=== PATIENT | male | born 1955 | race African-American/Black ===

== ENCOUNTER 2018-11-01 10:40 | Day surgery (SDC) | payer OTHER ==
[2018-10-31 17:09] VITALS: BMI 26.6
--- NOTE | 2018-11-01 12:04 | HP ---
Admitting History and Physical - Admission Chief Complaint: Left great toe gangrene. pt here for angiogram today . Limitations to Obtaining History: No Limitations - Past Medical History Cardiovascular: Yes: HTN Endocrine: Yes: Diabetes Mellitus - Past Surgical History Past Surgical History: Yes: Kidney Transplant - Smoking History Smoking history: Never smoked Have you smoked in the past 12 months: No - Alcohol/Substance Use Hx Alcohol Use: Yes (rarely) Home Medications - Allergies Allergies/Adverse Reactions: Allergies Allergy/AdvReac Type Severity Reaction Status Date / Time shellfish derived Allergy Verified 11/01/18 11:07 - Home Medications Home Medications: Ambulatory Orders Aspirin [ASA -] 81 mg PO DAILY 11/03/16 Hydralazine HCl 100 mg PO TID 11/03/16 Insulin (Levemir) [Levemir Flexpen -] 30 units SQ BID 11/03/16 Labetalol HCl 300 mg PO BID 11/03/16 Nifedipine [Nifedipine ER] 60 mg PO BID 11/03/16 Tacrolimus [Prograf] 10 mg PO BID 11/03/16 Sodium Bicarbonate 975 mg PO BID 10/08/18 Cefuroxime Axetil [Ceftin -] 250 mg PO BID 10/31/18 Ezetimibe [Zetia -] 10 mg PO DAILY 10/31/18 Furosemide [Lasix -] 40 mg PO DAILY PRN 10/31/18 Mycophenolate Sodium [Mycophenolic Acid] 360 mg PO BID 10/31/18 Prednisone 5 mg PO DAILY 10/31/18 Tamsulosin HCl 0.4 mg PO DAILY 10/31/18 Review of Systems - Review of Systems Constitutional: reports: No Symptoms Eyes: reports: No Symptoms HENT: reports: No Symptoms Neck: reports: No Symptoms Cardiovascular: reports: No Symptoms Respiratory: reports: No Symptoms Gastrointestinal: reports: No Symptoms Genitourinary: reports: No Symptoms Musculoskeletal: reports: No Symptoms Integumentary: reports: Other (left great toe gangrene) Neurological: reports: No Symptoms Endocrine: reports: No Symptoms Hematology/Lymphatic: reports: No Symptoms Psychiatric: reports: No Symptoms Physical Examination Vital Signs: Vital Signs Temperature 97.6 F 11/01/18 11:03 Pulse Rate 69 11/01/18 11:03 Respiratory Rate 16 11/01/18 11:03 Blood Pressure 133/71 11/01/18 11:03 O2 Sat by Pulse Oximetry (%) 100 07/11/19 11:03 Constitutional: Yes: Well Nourished, No Distress, Calm Eyes: Yes: WNL, Conjunctiva Clear, EOM Intact HENT: Yes: WNL, Atraumatic, Normocephalic Neck: Yes: WNL, Supple, Trachea Midline Cardiovascular: Yes: WNL, Regular Rate and Rhythm Respiratory: Yes: WNL, Regular, CTA Bilaterally Gastrointestinal: Yes: WNL, Normal Bowel Sounds Musculoskeletal: Yes: WNL Extremities: Yes: WNL, Other (left great toe gangrene) Edema: No Peripheral Pulses WNL: No Integumentary: Yes: WNL Neurological: Yes: WNL, Alert, Oriented ...Motor Strength: WNL Psychiatric: Yes: WNL Problem List - Problems (1) Gangrene of left foot Assessment/Plan: for angiogram today Code(s): I96 - GANGRENE, NOT ELSEWHERE CLASSIFIED
[2018-11-01] MEDS ORDERED: ceFAZolin SODIUM 1 GM VIAL IVPB ONE (12:11)
[2018-11-01] MEDS ORDERED: MIDAZOLAM HCL 2 MG/2 ML SINGLE DOSE VIAL ONE (12:14)
[2018-11-01] MEDS ORDERED: oxyCODONE HCL 5 MG TABLET PO PRN (12:18)
[2018-11-01] MEDS ORDERED: ONDANSETRON 4 MG/2 ML VIAL IVPUSH PRN (12:18)
--- NOTE | 2018-11-01 14:05 | OP ---
Operative Note - Note: Operative Date: 11/01/18 Pre-Operative Diagnosis: left foot gangrene Operation: CO2 Aortogram, LLE CO2 angiogram, posterior tibial artery atherectomy with angioplasty, peroneal artery angioplasty Findings: Post tibial artery occlusion Peroneal artery stenosis Post-Operative Diagnosis: Same as Pre-op Surgeon: Cy Pulido Anesthesia: Fractional Estimated Blood Loss (mls): 50 Operative Report Dictated: Yes
[2018-11-01] MEDS ORDERED: CLOPIDOGREL BISULFATE 75 MG TABLET (FP) PO ONE (14:08)
[2018-11-01] MEDS ORDERED: CLOPIDOGREL BISULFATE 75 MG TABLET (FP) ONE (15:14)
[2018-11-01 17:22] VITALS: BP 153/71; PULSE 74; TEMP 98.3
--- NOTE | 2018-11-10 16:38 | OP ---
DATE OF OPERATION: 11/01/2018 PREOPERATIVE DIAGNOSIS: Left foot gangrene. POSTOPERATIVE DIAGNOSIS: Left foot gangrene. PROCEDURE PERFORMED: Carbon dioxide aortogram, the left lower extremity carbon dioxide angiogram, posterior tibial artery atherectomy with angioplasty, peroneal artery angioplasty. FINDINGS: Posterior tibial artery occlusion, peroneal artery stenosis. SURGEON: Cy Frye DO ANESTHESIA: Fractional. BLOOD LOSS: 50 mL. INDICATIONS: The patient is a 63-year-old male who has left great toe gangrene. It was decided that he would need an angiogram. Preoperative ultrasound showed tibial disease. DESCRIPTION OF PROCEDURE: The patient came in to Ambulatory Surgery. The patient was consented for the procedure, understanding all risks, benefits and alternatives, and was then taken to the operating room. Once in the operating room, the patient was laid on the operating table in the supine manner. The areas of the right and left groins were prepped and draped in a sterile surgical manner. We then injected 10 mL of lidocaine 1% over the left common femoral artery. We then used our Micropuncture needle and punctured the left common femoral artery. Micropuncture wire was inserted. Micropuncture sheath was inserted. A 0.035 floppy guidewire was inserted, and an additional 5-Micronesian sheath was inserted. We then placed the 0.035 floppy guidewire up into the aorta, followed by an Omni Flush catheter. We then shot a CO2 aortogram, showing that aorta and the iliac arteries were without any disease. We then went ahead and placed our 0.035 floppy guidewire up and over to the left common femoral artery. Omni Flush catheter followed. We then shot a left lower extremity CO2 angiogram, showing that the common femoral artery, the profunda and the SFA were patent. The popliteal artery was patent. The peroneal artery had a severe stenosis of about 90%. The posterior tibial artery was occluded at its origin and reconstituted in the mid to distal portion. At this point we placed a 0.035 stiff guidewire into the SFA and removed our Omni Flush catheter. We then placed a 6 x 45 crossover sheath. Then 5000 units of IV heparin was administered to the patient. We then placed a 0.035 floppy guidewire down into the popliteal artery and with a Quick-Cross catheter we were able to selectively cannulate the 0.035 stiff guidewire into the posterior tibial artery. We got it all the way down into the foot. We then placed our Quick-Cross catheter and exchanged it for a ViperWire. We then went ahead and performed orbital atherectomy of the posterior tibial artery using a CSI device on low and medium. We then went ahead and used a 2.5 x 200 balloon and performed angioplasty of the posterior tibial artery. We then went ahead and took our wire and placed it into the posterior tibial artery and crossed the severe stenosis. We then used a 2.5 x 10 balloon and performed angioplasty of the peroneal artery. Completion angiogram now showed that the posterior tibial artery and the peroneal artery were patent. There was good in-line runoff all the way into the foot, main runoff the posterior tibial artery feeding the entire foot. At this point we brought our sheath up and over, and a StarClose device was successfully deployed in the left common femoral artery. Pressure was held for 5 minutes. Afterwards there was no bleeding. The area was wet and dried, and Dermabond was placed. The patient tolerated the procedure with no complications. Total blood loss was 50 mL. CY FRYE DO [id number]
== END 2018-11-01 17:15 | disposition home or self-care (01) ==
LOC: JASU-SURG 10:40
PROVIDERS: ATTEND Surgery Vascular Surgery
PROC: 047U3ZZ Dilation of Left Peroneal Artery, Percutaneous Approach (ICD-10-PCS; 2018-11-01)
PROC: 047S3ZZ Dilation of Left Posterior Tibial Artery, Percutaneous Approach (ICD-10-PCS; principal; 2018-11-01 12:00)
DX: I70.262 Atherosclerosis of native arteries of extremities with gangrene, left leg (principal); I77.1 Stricture of artery; I12.0 Hypertensive chronic kidney disease with stage 5 chronic kidney disease or end stage renal disease; E11.22 Type 2 diabetes mellitus with diabetic chronic kidney disease; N18.6 End stage renal disease; Z99.2 Dependence on renal dialysis; Z94.0 Kidney transplant status
CPT/HCPCS: 37229; 37232; C1725; 76000-TC-FY; 82962; 94760

== ENCOUNTER 2018-11-12 11:43 | Inpatient (IN) | payer OTHER ==
--- NOTE | 2018-11-12 12:00 | PDOC ---
Rapid Medical Evaluation Time Seen by Provider: 11/12/18 11:58 Medical Evaluation: Allergies Allergy/AdvReac Type Severity Reaction Status Date / Time shellfish derived Allergy Verified 11/12/18 11:58 11/12/18 11:58 I have performed a brief in-person evaluation of this patient. The patient presents with a chief complaint of: sent from wound care with f/c Pertinent physical exam findings: VSS. T-100.4, Left great toe wound I have ordered the following: labs, urine The patient will proceed to the ED for further evaluation. Discharge Disposition - Diagnosis Gangrene of left foot - Referrals - Patient Instructions - Post Discharge Activity
[2018-11-12] MEDS ORDERED: SODIUM CHLORIDE 1,000 ML IV STA (12:03)
--- NOTE | 2018-11-12 12:27 | PDOC ---
*Physical Exam - Vital Signs Last Vital Signs Temp Pulse Resp BP Pulse Ox 100.4 F H 121 H 18 156/70 99 11/12/18 12:00 11/12/18 12:00 11/12/18 12:00 11/12/18 12:00 11/12/18 12:00 Heart Score/ECG Review - ECG Impressions Comment:: 11/12/18 12:52 Sinus Tach w/LAD, TWI in lateral leads, biphasic P waves indicating L atrial enlargement Medical Decision Making - Medical Decision Making 11/12/18 12:33 Patient seen and evaluated with Dr. Singh (PGY-1) The patient is a 63 year old male with a PMH of PVD, IDDM, Renal transplant presents with L 1st toe gangrene who presents from wound clinic with fever ( Temp 100.4). Patient states he noticed chills on Monday and has been feeling nauseous since that time. Reports 3 episodes of loose watery stool daily since Monday. Currently being evaluated for L great toe wound. Tachycardic (HR 121) Febrile (100.4) @ presentation w/frankly gangrenous 1st hallux ED Adult Sepsis initiated Will obtain Pre-Op labs and start on IV Abx 11/12/18 12:49 EKG with TWI in lateral leads aVL, V5,V6, no active complaints of CP 11/12/18 13:03 Case d/w Dr. Mei's COMPUTER TAPE LIBRARIAN, will accept for admission, requests Dr. Whitten for ID *DC/Admit/Observation/Transfer Diagnosis at time of Disposition: Gangrene of left foot, Systemic inflammatory response syndrome (SIRS), Fever, Tachycardia - Discharge Dispostion Condition at time of disposition: Fair Decision to Admit order: Yes - Referrals - Patient Instructions - Post Discharge Activity
--- NOTE | 2018-11-12 12:30 | PDOC ---
History of Present Illness - General Chief Complaint: SIRS, Suspected/Possible Stated Complaint: FEVER Time Seen by Provider: 11/12/18 11:58 History Source: Patient Exam Limitations: No Limitations - History of Present Illness Initial Comments: 11/12/18 13:12 63 yo M pmh HTN, DM, s/p renal transplant 2016 sent by wound care clinic for gangrenous left toe in the setting of fevers and chills for 3 days. Patient endorses 2-3 episodes of nbnb vomiting, 2-3 episodes of loose stool, and decreased PO intake of solid food. Pt has been followed by wound care for diabetic foot, states he noticed increased pain in the left great toe over the last 2 weeks. Endorses some weakness otherwise denies headache, lightheadedness , dizziness, cough, chest pain, SOB, abdominal pain, and dysuria. PMH: see chart, h/o UTI MED: see chart Shellfish allergy PCP: Hamida Note: patient sent to ED with physician note requesting initiation of antibiotics. Past History - Past Medical History Allergies/Adverse Reactions: Allergies Allergy/AdvReac Type Severity Reaction Status Date / Time shellfish derived Allergy Verified 11/12/18 11:58 Home Medications: Ambulatory Orders Aspirin [ASA -] 81 mg PO DAILY 11/03/16 Hydralazine HCl 100 mg PO TID 11/03/16 Insulin (Levemir) [Levemir Flexpen -] 30 units SQ BID 11/03/16 Labetalol HCl 300 mg PO BID 11/03/16 Nifedipine [Nifedipine ER] 60 mg PO BID 11/03/16 Tacrolimus [Prograf] 10 mg PO BID 11/03/16 Sodium Bicarbonate 975 mg PO BID 10/08/18 Ezetimibe [Zetia -] 10 mg PO DAILY 10/31/18 Furosemide [Lasix -] 40 mg PO DAILY PRN 10/31/18 Mycophenolate Sodium [Mycophenolic Acid] 360 mg PO BID 10/31/18 Prednisone 5 mg PO DAILY 10/31/18 Tamsulosin HCl 0.4 mg PO DAILY 10/31/18 Clopidogrel Bisulfate [Plavix] 75 mg PO DAILY #30 tablet 11/01/18 COPD: No Diabetes: Yes HTN: Yes Hypercholesterolemia: Yes Other medical history: KIDNEY TRANSPLANT 11/06 - Immunization History Immunization Up to Date: Yes - Suicide/Smoking/Psychosocial Hx Smoking History: Never smoked Have you smoked in the past 12 months: No Hx Alcohol Use: No Drug/Substance Use Hx: No Substance Use Type: None Review of Systems - Review of Systems Able to Perform ROS?: Yes Is the patient limited German proficient: No Constitutional: Yes: Chills, Fever, Loss of Appetite (decreased PO intake of solid food; can have soft foods), Weakness HEENTM: No: Symptoms Reported, Eye Pain, Blurred Vision, Tearing, Recent change in vision, Double Vision, Cataracts, Ear Pain, Ocular Prothesis, Ear Discharge, Nose Pain, Nose Congestion, Tinnitus, Nose Bleeding, Hearing Loss, Throat Pain, Throat Swelling, Mouth Pain, Dental Problems, Difficulty Swallowing, Mouth Swelling Respiratory: No: Symptoms reported, Cough, Orthopnea, Shortness of Breath, SOB with Exertion, SOB at Rest, Stridor, Wheezing, Productive cough, Hemoptysis Cardiac (ROS): No: Symptoms Reported, Chest Pain, Irregular Heart Rate, Lightheadedness, Palpitations, Syncope, Chest Tightness ABD/GI: Yes: See HPI : No: Symptoms Reported, Burning, Dysuria, Discharge, Frequency, Flank Pain, Hematuria, Incontinence, Pain, Urgency, Testicular Mass, Testicular Swelling, Lesions, Testicular Pain, Other Neurological: No: Symptoms reported, Headache, Numbness, Paresthesia, Pre- Existing Deficit, Seizure, Tingling, Tremors, Weakness, Unsteady Gait, Ataxia, Dizziness All Other Systems: Reviewed and Negative *Physical Exam - Vital Signs Last Vital Signs Temp Pulse Resp BP Pulse Ox 100.4 F H 121 H 18 156/70 99 11/12/18 12:00 11/12/18 12:00 11/12/18 12:00 11/12/18 12:00 11/12/18 12:00 - Physical Exam Comments: 11/12/18 13:18 GEN: Resting comfortable in bed, NAD. Pleasant. HEENT: NC/AT, EOMI, PERRLA. CN II-XII intact. Moist mucous membranes. No LAD noted. CV: S1/S2, RRR, tachycardic, (+) systolic murmur LUNG: CTAB, no wheezes, crackles, rales, rhonchi. GI: soft, ndnt, +BS. No masses. EXTREMITIES: 1+ pitting edema of LLE up to ankle/midshin. Gangrenous left great toe more severe on plantar aspect. No fluctuance or crepitus of the left foot. No deep ulcers appreciated. NEURO: AAOx3. FROM UE and LE b/l. /5 bicep/tricep/slab conditioner supervisor strength b/l. 5/5 UE strength b/l. 5/5 LE strength b/l. Sensation to touch grossly intact. ED Treatment Course - LABORATORY CBC & Chemistry Diagram: 11/12/18 12:55 11/12/18 12:55 Medical Decision Making - Medical Decision Making 11/12/18 13:24 63 yo M pmh DM, HTN, Renal Transplant presenting with 2 weeks of increased pain of his left great toe, which is gangrenous, in the setting of 3 days of fevers/ chills, N/V, and loose stool. Exam significant for fever, tachycardia, and a gangrenous left great toe. Patient was sent from wound care clinic today with request for IV abx. Must consider renal function and abx. DDx sepsis 2/2 gangrenous toe, unlikely osteomyelitis, cellulitis, or necrotizing fasciitis. Fever/chills with gangrenous toe - sepsis order set labs - IV, NS - NPO - EKG, CXR - Fever control - c/s ID to confirm abx Dispo: admit 11/12/18 14:03 Discussed patient with Apoorva PANDA - accepted patient for admit to gen-surg. Dispo: med-surg *DC/Admit/Observation/Transfer Diagnosis at time of Disposition: Systemic inflammatory response syndrome (SIRS), Fever, Tachycardia, Gangrene of left foot - Discharge Dispostion Condition at time of disposition: Fair Decision to Admit order: Yes - Referrals - Patient Instructions - Post Discharge Activity
[2018-11-12] MEDS ORDERED: ACETAMINOPHEN 1000 MG/100 ML VIAL (NON FORMULARY) IVPB ONE (12:46)
[2018-11-12] MEDS ORDERED: ACETAMINOPHEN INJECTION 100 ML IVPB ONE (13:10)
[2018-11-12 13:18] LABS: EOS % 0.1 % (0-4.5); HEMATOCRIT 37.1 % (35.4-49); LYMPH % 1.5 % (8-40); MCH 29.8 pg (25.7-33.7); MCHC 32.3 g/dl (32.0-35.9); MEAN CELL VOLUME 92.4 fl (80-96); MEAN PLT VOLUME 10.1 fl (7.5-11.1); MONO % 5.5 % (3.8-10.2); NEUT % 91.9 % (42.8-82.8); PLATELET COUNT 311 K/MM3 (134-434); RBC 4.01 M/mm3 (4.00-5.60); RDW 15.1 % (11.9-15.9); WHITE BLOOD COUNT 23.6 K/mm3 (4.0-10.0)
[2018-11-12 13:21] LABS: VENOUS PC02 35.6 mmHg (41-51); VENOUS PH 7.37 (7.31-7.41); VENOUS PO2 41.2 mmHg (30-40)
[2018-11-12 13:36] LABS: INR 1.05 (0.83-1.09); PROTHROMBIN TIME (PATIENT) 12.4 SEC (9.7-13.0)
[2018-11-12 13:40] LABS: ACTIVATED PTT 38.9 SECONDS (25.2-36.5)
[2018-11-12 13:59] LABS: ALBUMIN 2.9 g/dl (3.4-5.0); BILIRUBIN,TOTAL 0.8 mg/dL (0.2-1); BLOOD UREA NITROGEN 37.3 mg/dL (7-18); CALCIUM 8.9 mg/dL (8.5-10.1); CREATININE 2.5 mg/dL (0.55-1.3); POTASSIUM 4.6 mmol/L (3.5-5.1); TOT PROT 7.3 g/dl (6.4-8.2)
[2018-11-12] MEDS ORDERED: FUROSEMIDE 40 MG TABLET (FP) PO PRN (13:59)
[2018-11-12] MEDS ORDERED: PATIENT'S OWN MEDICATION (NON-FORMULARY) (Hydralazine Hcl [Hydralazine Hcl] 100 MG) PO SCH (14:00)
--- NOTE | 2018-11-12 14:02 | PN ---
Progress Note (short form) - Note Progress Note: Vascular Surgery Pt seen and examined in wound care clinic today. Pt complaining of fevers and chills. pt recently had angiogram, angioplasty performed to revascularize right limb. Pt has good strong dopplerable PT pulse. Now with dry gangrene. Seems like pt is getting septic from toe. Sent to ER for IV antibiotics. Spoke to podiatry, Dr. Riley, - he will amputate the toe serafin. Cy Pulido dO
--- NOTE | 2018-11-12 14:04 | HP ---
Admitting History and Physical - Primary Care Physician PCP: Sravani Mei - Admission Chief Complaint: Pain to L great toe History of Present Illness: Patient is a b63 y/o male with past medical history of HTN, DM, Renal Transplant 3 yrs ago at [facility]. Patient states he was sent from wound care clinic for worsening wound and infection to left great toe. Patient states on Monday he developed sharp pain to left great toe accompanied with fevers, chills, diarrhea, and loss of appetite. Patientwas being followed by wound clinic for toe and started hyperbaric treatment last week. Today in the clinic he was noted to be febrile and was sent down to ER for further evaluation. History Source: Patient Limitations to Obtaining History: No Limitations - Past Medical History Cardiovascular: Yes: HTN Endocrine: Yes: Diabetes Mellitus - Past Surgical History Past Surgical History: Yes: Kidney Transplant - Smoking History Smoking history: Never smoked Have you smoked in the past 12 months: No - Alcohol/Substance Use Hx Alcohol Use: No - Social History Usual Living Arrangement: Yes: With Spouse ADL: Independent History of Recent Travel: No Home Medications - Allergies Allergies/Adverse Reactions: Allergies Allergy/AdvReac Type Severity Reaction Status Date / Time shellfish derived Allergy Verified 11/12/18 11:58 - Home Medications Home Medications: Ambulatory Orders Aspirin [ASA -] 81 mg PO DAILY 11/03/16 Hydralazine HCl 100 mg PO TID 11/03/16 Insulin (Levemir) [Levemir Flexpen -] 30 units SQ BID 11/03/16 Labetalol HCl 300 mg PO BID 11/03/16 Nifedipine [Nifedipine ER] 60 mg PO BID 11/03/16 Tacrolimus [Prograf] 10 mg PO BID 11/03/16 Sodium Bicarbonate 975 mg PO BID 10/08/18 Ezetimibe [Zetia -] 10 mg PO DAILY 10/31/18 Furosemide [Lasix -] 40 mg PO DAILY PRN 10/31/18 Mycophenolate Sodium [Mycophenolic Acid] 360 mg PO BID 10/31/18 Prednisone 5 mg PO DAILY 10/31/18 Tamsulosin HCl 0.4 mg PO DAILY 10/31/18 Clopidogrel Bisulfate [Plavix] 75 mg PO DAILY #30 tablet 11/01/18 Review of Systems - Review of Systems Constitutional: reports: Chills, Fever, Loss of Appetite Eyes: reports: No Symptoms HENT: reports: No Symptoms Neck: reports: No Symptoms Cardiovascular: reports: No Symptoms Respiratory: reports: No Symptoms Gastrointestinal: reports: Diarrhea Genitourinary: reports: Frequency Breasts: reports: No Symptoms Reported Musculoskeletal: reports: Other (L great toe pain) Integumentary: reports: Wound (L great toe) Neurological: reports: No Symptoms Endocrine: reports: No Symptoms Hematology/Lymphatic: reports: No Symptoms Psychiatric: reports: No Symptoms Physical Examination Vital Signs: Vital Signs Temperature 100.4 F H 11/12/18 12:00 Pulse Rate 121 H 11/12/18 12:00 Respiratory Rate 18 11/12/18 12:00 Blood Pressure 156/70 11/12/18 12:00 O2 Sat by Pulse Oximetry (%) 99 11/12/18 12:00 Constitutional: Yes: No Distress, Calm Eyes: Yes: Conjunctiva Clear HENT: Yes: Atraumatic Neck: Yes: Supple Cardiovascular: Yes: Tachycardia Respiratory: Yes: Regular, CTA Bilaterally Gastrointestinal: Yes: Normal Bowel Sounds, Soft Musculoskeletal: Yes: Muscle Weakness Extremities: Yes: WNL Edema: No Integumentary: Yes: Other (L great toe, foul smelling, eschar noted, decreased sensation) Wound/Incision: Yes: Open to air Neurological: Yes: Alert, Oriented Psychiatric: Yes: Alert, Oriented Labs: CBC, BMP 11/12/18 12:55 11/12/18 12:55 Problem List - Problems (1) Fever Assessment/Plan: -ID on board -WBC 23.5 -tylenol for temp >100F -BC, UC, ordered Code(s): R50.9 - FEVER, UNSPECIFIED (2) Gangrene of left foot Assessment/Plan: -Podiatry and Vascular on board -NPO--possible surgery in AM -IV hydration Code(s): I96 - GANGRENE, NOT ELSEWHERE CLASSIFIED (3) HTN (hypertension) Assessment/Plan: -Hydralazine, Labetolol, Nifedipine -low Na diet when resume PO intake Code(s): I10 - ESSENTIAL (PRIMARY) HYPERTENSION (4) Diabetes mellitus Assessment/Plan: -BGM ACHS -Levemir -ISS -diabetic diet when resume PO intake -HgA1c Code(s): E11.9 - TYPE 2 DIABETES MELLITUS WITHOUT COMPLICATIONS Assessment/Plan see problem list
[2018-11-12] MEDS ORDERED: hydrALAZINE HCL 25 MG TABLET (FP) ONE (14:05)
[2018-11-12] MEDS: DEXTROSE 5%-NORMAL SALINE 1,000 ML IV SCH (15:03)
[2018-11-12] MEDS ORDERED: VANCOMYCIN 1,000 MG in DEXTROSE 5%-WATER - 250 ML IVPB ONE (15:12)
[2018-11-12] MEDS ORDERED: PIPERACILLIN/TAZOB 4.5 GM 3.375 GM in DEXTROSE 5%-WATER 100 ML IVPB ONE (15:12)
--- NOTE | 2018-11-12 15:23 | PDOC ---
Documentation entered by Luly Carrizales SCRIBE, acting as scribe for Nilda Bunch MD. Nilda Bunch MD: This documentation has been prepared by the scribe, Luly Carrizales SCRIBE, under my direction and personally reviewed by me in its entirety. I confirm that the documentation accurately reflects all work, treatment, procedures, and medical decision making performed by me. Attending Attestation - Resident Resident Name: SinghBrian - ED Attending Attestation I have performed the following: I have examined & evaluated the patient, The case was reviewed & discussed with the resident, I agree w/resident's findings & plan, Exceptions are as noted - HPI HPI: 11/12/18 13:34 The patient is a 63-year old male, with a past medical history of peripheral vascular disease, kidney transplant, IDDM, who present to the ED for evaluation of gangrenous left toe accompanied by fevers and chills x3 days. He also endorses 2-3 episodes of vomiting and loose stools; no blood noted. The patient is [facility]. He reports increased LT foot pain over the past 2 weeks and weakness. The patient denies any constipation, hematochezia, or abdominal pain. Denies any chest pain, palpitations, or shortness of breath. Denies any urinary symptoms. Denies any headache, dizziness, lightheadedness, or changes in strength or sensation. Allergies: Shellfish derived Social History: None reported. Surgical History: Kidney transplant. PCP: Dr. Mei - Physicial Exam PE: 11/12/18 13:34 NAD, well appearing, very warm to touch, EOMI, PERRL, MMM, nl conjunctiva, anicteric; neck supple. lungs clear, +tachycardic, abdomen soft nontender. Back nontender. DEE x4, no focal neuro deficits. No peripheral edema. normal color for ethnicity, WWP. 1+ pedal pulses, left great toe dry gangrene, no active purulence. +malodor. +venous stasis changes to BLE. LUE fistula with palp thrill. 11/12/18 15:14 11/12/18 15:22 - Medical Decision Making 11/12/18 15:15 See HPI for details. Prior notes reviewed, including admissions, discharges and consultations. Vital signs reviewed, +fever and tachycardia Vital Signs Temp Pulse Resp BP Pulse Ox 100.4 F H 121 H 18 156/70 99 11/12/18 12:00 11/12/18 12:00 11/12/18 12:00 11/12/18 12:00 11/12/18 12:00 DDX sepsis, bacteremia, osteomyelitis, gangrene, toe infection, electrolyte/ metabolic derangements. laboratory results and imaging reviewed, basic labs and lytes +significant leukocytosis 23K. remainder of lytes wnl blood cultures pending, infectious workup. EKG sinus tachycardia of 121 bpm, no interval abnormalities, narrow QRS, ST and T wave segments and morphology normal. Nonspecific T wave abnormalities ED course -interventions: IVF, tylenol for fever, vancomycin and zosyn given comorbidities , poor circulation, wound infection, so will treat broadly to cover pseudomonas and MRSA - will need wound care and vascular cs, podiatry, possible amputation in addition to infectious workup/IVabx. - admit to Dr Mei service for medical and possibly surgical management of left gangrene toe/superinfection. s.o SHAKE CUTTER Trent Montes De Oca regarding care and further management 11/12/18 15:22 11/12/18 15:22 Heart Score/ECG Review #1 ECG reviewed & interpreted by me at: 12:35 General ECG Interpretation: Sinus Rhythm, Normal Intervals Compared to previous ECG there are: Changes noted 11/12/18 15:22 EKG sinus tachycardia of 121 bpm, no interval abnormalities, narrow QRS, ST and T wave segments and morphology normal. Nonspecific T wave abnormalities
--- NOTE | 2018-11-12 15:49 | CON.ID ---
Consult Consult Specialty:: infectious disease Referred by:: reji Reason for Consultation:: fever - History of Present Illness Chief Complaint: fever/chills History of Present Illness: 89 yo man pmh renal transplant 2016, baseline cr [address] frances, seen in [facility] care about 3 weeks ago for a left big toe blister that became gangrenous. he is s/p angioplasty of LLE with Dr Pulido on 11/01 over the weekend he started to feel lousy and have chills +nausea no vomiting diarrhea - nonbloody times two- has stopped now no cough or cold symptoms, no sob no dysuria he gives a 8 month history of recurrent UTIs for which he has been [facility] has been on intermittent antibiotics for the last 8 months for this he was on HD via left amr AVF for three eyars prior to transplant - History Source History Provided By: Patient, Medical Record Limitations to Obtaining History: No Limitations - Past Medical History Cardio/Vascular: Yes: HTN Renal/: Yes: Renal Failure, Hemodialysis, UTI Endocrine: Yes: Diabetes Mellitus - Past Surgical History Past Surgical History: Yes: AV Fistula/Graft (left), Kidney Transplant - Alcohol/Substance Use Hx Alcohol Use: No - Smoking History Smoking history: Never smoked Have you smoked in the past 12 months: No - Social History Usual Living Arrangement: With Spouse ADL: Independent Occupation: retired [employer] employee Place of : [facility] History of Recent Travel: No Home Medications - Allergies Allergies/Adverse Reactions: Allergies Allergy/AdvReac Type Severity Reaction Status Date / Time shellfish derived Allergy Verified 11/12/18 11:58 - Home Medications Home Medications: Ambulatory Orders Aspirin [ASA -] 81 mg PO DAILY 11/03/16 Hydralazine HCl 100 mg PO TID 11/03/16 Insulin (Levemir) [Levemir Flexpen -] 30 units SQ BID 11/03/16 Labetalol HCl 300 mg PO BID 11/03/16 Nifedipine [Nifedipine ER] 60 mg PO BID 11/03/16 Tacrolimus [Prograf] 10 mg PO BID 11/03/16 Sodium Bicarbonate 975 mg PO BID 10/08/18 Ezetimibe [Zetia -] 10 mg PO DAILY 10/31/18 Furosemide [Lasix -] 40 mg PO DAILY PRN 10/31/18 Mycophenolate Sodium [Mycophenolic Acid] 360 mg PO BID 10/31/18 Prednisone 5 mg PO DAILY 10/31/18 Tamsulosin HCl 0.4 mg PO DAILY 10/31/18 Clopidogrel Bisulfate [Plavix] 75 mg PO DAILY #30 tablet 11/01/18 Family Disease History - Family Disease History Family Disease History: Diabetes: Brother, Other: Sister (kidney failure) Review of Systems - Review of Systems Constitutional: reports: Chills, Fever Eyes: reports: No Symptoms HENT: reports: No Symptoms Neck: reports: No Symptoms Cardiovascular: reports: No Symptoms. denies: Chest Pain Respiratory: denies: Cough, SOB Gastrointestinal: reports: Diarrhea (now resolved), Nausea. denies: Abdominal Pain Genitourinary: reports: No Symptoms Breasts: reports: No Symptoms Reported Musculoskeletal: reports: No Symptoms Integumentary: reports: No Symptoms Neurological: reports: No Symptoms Physical Exam Vital Signs: Vital Signs Temperature 100.4 F H 11/12/18 12:00 Pulse Rate 121 H 11/12/18 12:00 Respiratory Rate 18 11/12/18 12:00 Blood Pressure 156/70 11/12/18 12:00 O2 Sat by Pulse Oximetry (%) 99 11/12/18 12:00 Constitutional: Yes: Well Nourished, No Distress, Calm Eyes: Yes: Conjunctiva Clear HENT: Yes: Atraumatic, Normocephalic Neck: Yes: Supple, Trachea Midline Cardiovascular: Yes: Regular Rate and Rhythm, Murmur Respiratory: Yes: Regular, CTA Bilaterally Gastrointestinal: Yes: Normal Bowel Sounds, Soft, Other (well healed abdominal scar) ...Rectal Exam: Yes: Deferred Renal/: Yes: CVA Tenderness - Left, CVA Tenderness - Right. No: Bladder Distention Breast(s): Yes: WNL Musculoskeletal: Yes: WNL Extremities: Yes: WNL, Erythema (right foot), Other (+AVF) Edema: Yes (right big toe gangrene) Integumentary: Yes: WNL Wound/Incision: Yes: Clean/Dry Neurological: Yes: Alert, Oriented Psychiatric: Yes: Alert, Oriented Labs: CBC, BMP 11/12/18 12:55 11/12/18 12:55 blood cultures pending Laboratory Tests 11/12/18 11/12/18 12:55 12:55 ESR 92 H C-Reactive Protein 29.4 H Imaging - Results Chest X-ray: Report Reviewed, Image Reviewed Problem List - Problems (1) Fever Code(s): R50.9 - FEVER, UNSPECIFIED (2) Gangrene of left foot Code(s): I96 - GANGRENE, NOT ELSEWHERE CLASSIFIED Assessment/Plan renal transplant patient with fever gangrenoous foulsmelling big toe left foot with surrounding erythema- for hand box coverer to evaluate history of recurrent UTI RISHI/CKD DM PVD s/p angioplasty received vancomycin and zosyn in ED check vancomycin level in am continue zosyn 2/25 g q6h check UA and urine culture patient reports he was evaluated by urologist as outpt renal consult hand box coverer to see as well
[2018-11-12 16:30] VITALS: BMI 27.3
[2018-11-12] MEDS ORDERED: PIPERACILLIN/TAZOB 3.375 GM 3.375 GM in DEXTROSE 5%-WATER - 50 ML IVPB ONE (17:15)
--- NOTE | 2018-11-12 17:15 | CONSULT ---
Consult Consult Specialty:: Nephrology Reason for Consultation:: kidney transplant - History of Present Illness Chief Complaint: sent in for fever History of Present Illness: Pt is a 63 year old male with pmhx of kidney transplant in 2016, PVD, viral meningitis, seizure, and DM who presents with fever. He has left great toe gangrene. He is awake and alert. He had a kidney transplant in [facility] [place]. He denies chills. He does get lower ext edema and is on lasix. He denies shortness of breath. He denies nsaid use. He says that he is compliant with his meds. - History Source History Provided By: Patient, Medical Record - Past Medical History Cardio/Vascular: Yes: HTN Renal/: Yes: Renal Failure, Hemodialysis, UTI Endocrine: Yes: Diabetes Mellitus - Past Surgical History Past Surgical History: Yes: AV Fistula/Graft (left), Kidney Transplant - Alcohol/Substance Use Hx Alcohol Use: No - Smoking History Smoking history: Never smoked Have you smoked in the past 12 months: No - Social History Usual Living Arrangement: With Spouse ADL: Independent Occupation: retired [employer] employee History of Recent Travel: No Home Medications - Allergies Allergies/Adverse Reactions: Allergies Allergy/AdvReac Type Severity Reaction Status Date / Time shellfish derived Allergy Verified 11/12/18 11:58 - Home Medications Home Medications: Ambulatory Orders Aspirin [ASA -] 81 mg PO DAILY 11/03/16 Hydralazine HCl 100 mg PO TID 11/03/16 Insulin (Levemir) [Levemir Flexpen -] 30 units SQ BID 11/03/16 Labetalol HCl 300 mg PO BID 11/03/16 Nifedipine [Nifedipine ER] 60 mg PO BID 11/03/16 Tacrolimus [Prograf] 10 mg PO BID 11/03/16 Sodium Bicarbonate 975 mg PO BID 10/08/18 Ezetimibe [Zetia -] 10 mg PO DAILY 10/31/18 Furosemide [Lasix -] 40 mg PO DAILY PRN 10/31/18 Mycophenolate Sodium [Mycophenolic Acid] 360 mg PO BID 10/31/18 Prednisone 5 mg PO DAILY 10/31/18 Tamsulosin HCl 0.4 mg PO DAILY 10/31/18 Clopidogrel Bisulfate [Plavix] 75 mg PO DAILY #30 tablet 11/01/18 Family Disease History - Family Disease History Family Disease History: Diabetes: Brother, Other: Sister (kidney failure) Review of Systems - Review of Systems Constitutional: reports: Fever, Malaise Eyes: reports: No Symptoms HENT: reports: No Symptoms Neck: reports: No Symptoms Cardiovascular: reports: No Symptoms Respiratory: reports: No Symptoms Genitourinary: reports: No Symptoms Musculoskeletal: reports: No Symptoms Integumentary: reports: Other (gangrene left great toe) Physical Exam Vital Signs: Vital Signs Temperature 104 F H 11/12/18 13:00 Pulse Rate 104 H 11/12/18 13:00 Respiratory Rate 20 11/12/18 15:00 Blood Pressure 146/72 11/12/18 13:00 O2 Sat by Pulse Oximetry (%) 99 11/12/18 12:00 Constitutional: Yes: Calm Eyes: Yes: Conjunctiva Clear HENT: Yes: Atraumatic Cardiovascular: Yes: S1, S2 Respiratory: Yes: CTA Bilaterally Gastrointestinal: Yes: Normal Bowel Sounds, Soft Renal/: Yes: WNL Musculoskeletal: Yes: WNL Edema: Yes Edema: LLE: 1+ Neurological: Yes: Oriented Psychiatric: Yes: Oriented Labs: CBC, BMP 11/12/18 12:55 11/12/18 12:55 Laboratory Tests 11/12/18 11/12/18 11/12/18 12:55 12:55 12:55 WBC 23.6 H Hgb 12.0 Plt Count 311 VBG pH 7.37 Sodium 137 Potassium 4.6 Chloride 102 Carbon Dioxide 20 L Anion Gap 15 BUN 37.3 H Creatinine 2.5 H Lactic Acid Albumin 2.9 L 11/12/18 14:55 WBC Hgb Plt Count VBG pH Sodium Potassium Chloride Carbon Dioxide Anion Gap BUN Creatinine Lactic Acid 1.4 Albumin Imaging - Results Chest X-ray: Report Reviewed Problem List - Problems (1) Kidney transplant recipient Code(s): Z94.0 - KIDNEY TRANSPLANT STATUS (2) CKD (chronic kidney disease) Code(s): N18.9 - CHRONIC KIDNEY DISEASE, UNSPECIFIED (3) Diabetes mellitus Code(s): E11.9 - TYPE 2 DIABETES MELLITUS WITHOUT COMPLICATIONS (4) Fever Code(s): R50.9 - FEVER, UNSPECIFIED (5) Gangrene of left foot Code(s): I96 - GANGRENE, NOT ELSEWHERE CLASSIFIED (6) HTN (hypertension) Code(s): I10 - ESSENTIAL (PRIMARY) HYPERTENSION Assessment/Plan Current Medications Generic Name Dose Route Start Last Admin Trade Name Freollie PRN Reason Stop Dose Admin Acetaminophen 650 mg 11/12/18 14:16 Tylenol - PO Q4H PRN FEVER Aspirin 81 mg 11/13/18 10:00 Asa - PO DAILY [facility] Clopidogrel Bisulfate 75 mg 11/13/18 10:00 Plavix - PO DAILY [facility] Ezetimibe 10 mg 11/13/18 10:00 Zetia - PO DAILY [facility] Furosemide 40 mg 11/13/18 10:00 Lasix - PO DAILY [facility] Hydralazine HCl 100 mg 11/12/18 15:27 Apresoline - PO TID [facility] Dextrose/Sodium Chloride 1,000 mls @ 75 mls/hr 11/12/18 14:30 11/12/18 15:03 D5-Ns - IV 75 mls/hr ASDIR CHNADU Administration Piperacillin Sod/Tazobactam 50 mls @ 100 mls/hr 11/12/18 21:00 Sod 2.25 gm/ Dextrose IVPB Q6H-IV CHANDU Protocol Piperacillin Sod/Tazobactam 50 mls @ 100 mls/hr 11/12/18 17:15 Sod 3.375 gm/ Dextrose IVPB 11/12/18 17:44 ONCE ONE Protocol Insulin Aspart 1 vial 11/12/18 16:30 Novolog Vial Sliding Scale - SQ ACHS [facility] Protocol Insulin Detemir 30 units 11/12/18 22:00 Levemir Vial SQ BID@0700,2200 [facility] Labetalol HCl 100 mg 11/12/18 22:00 Normodyne - PO BID [facility] Mycophenolate Sodium 360 mg 11/12/18 22:00 Mycophenolic Acid PO BID [facility] Nifedipine 60 mg 11/12/18 22:00 Procardia Xl - PO BID [facility] Prednisone 5 mg 11/13/18 10:00 Deltasone - PO DAILY [facility] Sodium Bicarbonate 975 mg 11/12/18 22:00 Sodium Bicarbonate - PO BID [facility] Tacrolimus 10 mg 11/12/18 22:00 Prograf PO BID [facility] Tamsulosin HCl 0.4 mg 11/13/18 08:30 Flomax - PO DAILY@0830 [facility] Impression 1. Kidney transplant 2. HTN 3. pvd 4. left toe gangrene 5. met acidosis 6. DM Plan - called Dr Reda and went over transplant meds: prograf 7 mg bid prednisone 5 mg mmf 360 mg tab, 2 tabs bid - called pharmacy and made changes - cont fluids and repeat labs in am - avoid nsaids and nephrotoxins
[2018-11-12] MEDS: INSULIN SLIDING SCALE (NOVOLOG) 1 VIAL SQ SCH ×2 (18:26→21:17)
[2018-11-12] MEDS ORDERED: PT OWN MED DRAWER 7, Y5N ONE ×2 (18:49→20:39)
[2018-11-12] MEDS ORDERED: PIPERACILLIN/TAZOBACTAM 2.25 GM VIAL IVPB ONE (20:03)
[2018-11-12] MEDS ORDERED: DEXTROSE 5%-WATER - 50 ML IVPB ONE (20:03)
[2018-11-12] MEDS: PIPERACILLIN/TAZOB 2.25 GM 2.25 GM in DEXTROSE 5%-WATER - 50 ML IVPB SCH (20:49)
[2018-11-12] MEDS: ACETAMINOPHEN 325 MG TABLET (FP) PO PRN (20:50)
[2018-11-12] MEDS: MYCOPHENOLATE SODIUM 360 MG TABLET.DR PO SCH (21:04)
[2018-11-12] MEDS: LABETALOL HCL 100 MG TABLET (FP) PO SCH (21:04)
[2018-11-12] MEDS: hydrALAZINE HCL 50 MG TABLET (FP) PO SCH (21:04)
[2018-11-12] MEDS: TACROLIMUS ANHYDROUS 5 MG, TACROLIMUS ANHYDROUS 2 MG PO SCH (21:05)
[2018-11-12] MEDS: NIFEdipine E.R 60 MG TABLET (UD) PO SCH (21:06)
[2018-11-12] MEDS: INSULIN (LEVEMIR) 100 UNITS/ML UNITS SQ SCH (21:18)
[2018-11-12] MEDS ORDERED: TACROLIMUS ANHYDROUS 5 MG CAPSULE PO SCH ×2 (22:00)
[2018-11-12] MEDS ORDERED: TACROLIMUS ANHYDROUS 1 MG CAPSULE PO SCH (22:00)
[2018-11-12] MEDS ORDERED: MYCOPHENOLATE SODIUM 360 MG TABLET.DR PO SCH (22:00)
[2018-11-12] MEDS ORDERED: LABETALOL HCL 100 MG TABLET (FP) PO SCH (22:00)
[2018-11-12] MEDS ORDERED: SODIUM BICARBONATE 325 MG TABLET PO SCH (22:00)
[2018-11-12 23:17] LABS: EPI CELLS 1.7 /HPF (0-5/HPF); HYALINE CASTS 11 /lpf (0-8); URINE APPEARANCE CLOUDY; URINE BACTERIA 209.3 /hpf (NEGATIVE); URINE BILIRUBIN NEGATIVE (NEGATIVE); URINE COLOR YELLOW; URINE GLUCOSE (UA) 3+ (NEGATIVE); URINE KETONE TRACE (NEGATIVE); URINE LEUK ESTERASE 2+ (NEGATIVE); URINE NITRITE POSITIVE (NEGATIVE); URINE PROTEIN 2+ (NEGATIVE); URINE UROBILINOGEN 0.2 mg/dL (0.2-1.0); URINE WBC 124 /hpf (0-5)
[2018-11-13] LABS: URINE RBC 4.6 /hpf (0-4)
[2018-11-13] MEDS ORDERED: PIPERACILLIN/TAZOBACTAM 2.25 GM VIAL IVPB ONE ×3 (01:02→13:53)
[2018-11-13] MEDS ORDERED: DEXTROSE 5%-WATER - 50 ML IVPB ONE ×2 (01:03→13:54)
[2018-11-13] MEDS: PIPERACILLIN/TAZOB 2.25 GM 2.25 GM in DEXTROSE 5%-WATER - 50 ML IVPB SCH ×3 (02:31→13:59)
[2018-11-13] MEDS: ACETAMINOPHEN 325 MG TABLET (FP) PO PRN ×2 (05:38→13:50)
[2018-11-13] MEDS: hydrALAZINE HCL 50 MG TABLET (FP) PO SCH ×3 (05:38→21:59)
[2018-11-13] MEDS: INSULIN SLIDING SCALE (NOVOLOG) 1 VIAL SQ SCH ×3 (06:07→22:03)
[2018-11-13] MEDS: INSULIN (LEVEMIR) 100 UNITS/ML UNITS SQ SCH ×2 (06:08→22:04)
[2018-11-13] MEDS: DEXTROSE 5%-NORMAL SALINE 1,000 ML IV SCH (06:54)
[2018-11-13 07:28] LABS: BASO % 0.1 % (0-2.0); EOS % 0.2 % (0-4.5); HEMATOCRIT 29.4 % (35.4-49); HEMOGLOBIN 9.6 GM/dL (11.7-16.9); LYMPH % 2.4 % (8-40); MCH 29.7 pg (25.7-33.7); MCHC 32.6 g/dl (32.0-35.9); MEAN PLT VOLUME 9.5 fl (7.5-11.1); NEUT % 91.3 % (42.8-82.8); PLATELET COUNT 284 K/MM3 (134-434); RBC 3.23 M/mm3 (4.00-5.60); RDW 14.8 % (11.9-15.9); WHITE BLOOD COUNT 19.2 K/mm3 (4.0-10.0)
[2018-11-13 07:44] LABS: INR 1.14 (0.83-1.09); PROTHROMBIN TIME (PATIENT) 13.5 SEC (9.7-13.0)
[2018-11-13 07:46] LABS: ACTIVATED PTT 33.8 SECONDS (25.2-36.5)
[2018-11-13] MEDS ORDERED: TAMSULOSIN HCL 0.4 MG CAP PO SCH (08:30)
[2018-11-13 08:59] LABS: ALBUMIN 2.2 g/dl (3.4-5.0); BILIRUBIN,TOTAL 0.6 mg/dL (0.2-1); CALCIUM 8.3 mg/dL (8.5-10.1); CREATININE 2.7 mg/dL (0.55-1.3); MAGNESIUM 2.1 mg/dL (1.8-2.4); TOT PROT 5.7 g/dl (6.4-8.2)
[2018-11-13] MEDS ORDERED: PT OWN MED DRAWER 7, Y5N ONE (09:22)
[2018-11-13] MEDS: NIFEdipine E.R 60 MG TABLET (UD) PO SCH ×2 (09:28→22:02)
[2018-11-13] MEDS: LABETALOL HCL 100 MG TABLET (FP) PO SCH ×2 (09:29→22:00)
[2018-11-13] MEDS: TACROLIMUS ANHYDROUS 5 MG, TACROLIMUS ANHYDROUS 2 MG PO SCH ×2 (09:29→22:00)
[2018-11-13] MEDS: MYCOPHENOLATE SODIUM 360 MG TABLET.DR PO SCH ×2 (09:30→22:01)
[2018-11-13] MEDS ORDERED: ASPIRIN 81 MG CHEWABLE TABLETS PO SCH (10:00)
[2018-11-13] MEDS ORDERED: EZETIMIBE 10 MG TABLET (FP) PO SCH (10:00)
[2018-11-13] MEDS ORDERED: predniSONE 5 MG TABLET (UD) PO SCH (10:00)
[2018-11-13] MEDS ORDERED: CLOPIDOGREL BISULFATE 75 MG TABLET (FP) PO SCH (10:00)
[2018-11-13] MEDS ORDERED: FUROSEMIDE 40 MG TABLET (FP) PO SCH (10:00)
[2018-11-13] MEDS ORDERED: SODIUM BICARBONATE PO SCH (10:00)
[2018-11-13 11:50] LABS: ANISOCYTOSIS 0; MACROCYTOSIS 0; PLATELET ESTIMATE NORMAL
--- NOTE | 2018-11-13 12:12 | CON.CARD ---
Consult Consult Specialty:: Cardiology Referred by:: Dr. Mei Reason for Consultation:: preop cardiac evaluation - History of Present Illness Chief Complaint: toe ulcer History of Present Illness: 63 year old man with a pmh of HTN, DMII, HLD, ESRD s/p renal transplant 10/2015 at [facility], PAD s/p prior LE SEAT JOINER, COPD, followed by Dr. Berry and seen recently in the office, recent echo showing normal LVEF, with mild to mod valvular abnl, now admitted with non-healing toe ulcer and concern for gangrene planned for toe amputation. Pt seen and examined today in [facility]. pt denies having any chest pain either at rest or with exertion. states he has chronic mild MANZANARES after walking approximately 2 blocks which has not changed recently. Rose nuclear stress test 06/08/16 Interpretation Summary No chest discomfort or ECG changes of ischemia after Regadeneson stress . Normal Myocardial Perfusion with Diaphragmatic Attenuation Artifact. The calculated left ventricular ejection fraction is 52%. Echocardiogram 09/14/2018; Left Atrium: Mild left atrial dilatation. Left Ventricle: Normal left ventricular size. Moderate concentric left ventricular hypertrophy. Normal left ventricular wall motion and ejection fraction. Estimated ejection fraction: 65.0 %. Right Atrium: Normal right atrial size. Right Ventricle: Normal right ventricular size. Probably normal right ventricular function. Aortic Valve: Normal appearing aortic valve leaflets. Mitral Valve: Redundant mitral valve with anterior leaflet prolapse. Mild to moderate mitral valve regurgitation. Regurgitation jet is posteriorly directed. Tricuspid Valve: Normal appearing tricuspid valve leaflets. Minimal tricuspid valve regurgitation. Pulmonic Valve: Minimal pulmonic valve regurgitation. Arteries: Normal sized aortic root. Pericardium/Pleura: No pericardial effusion. Hemodynamics: Doppler pattern suggests moderately increased (15 - 22mmHg) left atrial pressure. Estimated right atrial pressure is Normal (0-5 mmHg). Insufficient tricuspid regurgitation to quantify pulmonary artery pressure. MD Estimated Parameters Ejection Fraction: 65.0 % - History Source History Provided By: Patient, Medical Record Limitations to Obtaining History: No Limitations - Past Medical History Cardio/Vascular: Yes: HTN Renal/: Yes: Renal Failure, Hemodialysis, UTI Endocrine: Yes: Diabetes Mellitus - Past Surgical History Past Surgical History: Yes: AV Fistula/Graft (left), Kidney Transplant - Alcohol/Substance Use Hx Alcohol Use: No - Smoking History Smoking history: Never smoked Have you smoked in the past 12 months: No - Social History Usual Living Arrangement: With Spouse ADL: Independent Occupation: retired [employer] employee History of Recent Travel: No Home Medications - Allergies Allergies/Adverse Reactions: Allergies Allergy/AdvReac Type Severity Reaction Status Date / Time shellfish derived Allergy Verified 11/12/18 11:58 - Home Medications Home Medications: Ambulatory Orders Aspirin [ASA -] 81 mg PO DAILY 11/03/16 Hydralazine HCl 100 mg PO TID 11/03/16 Insulin (Levemir) [Levemir Flexpen -] 30 units SQ BID 11/03/16 Labetalol HCl 300 mg PO BID 11/03/16 Nifedipine [Nifedipine ER] 60 mg PO BID 11/03/16 Tacrolimus [Prograf] 10 mg PO BID 11/03/16 Sodium Bicarbonate 975 mg PO BID 10/08/18 Ezetimibe [Zetia -] 10 mg PO DAILY 10/31/18 Furosemide [Lasix -] 40 mg PO DAILY PRN 10/31/18 Mycophenolate Sodium [Mycophenolic Acid] 360 mg PO BID 10/31/18 Prednisone 5 mg PO DAILY 10/31/18 Tamsulosin HCl 0.4 mg PO DAILY 10/31/18 Clopidogrel Bisulfate [Plavix] 75 mg PO DAILY #30 tablet 11/01/18 Family Disease History - Family Disease History Family Disease History: Diabetes: Brother, Other: Sister (kidney failure) Review of Systems - Review of Systems Constitutional: reports: Fever, Malaise. denies: No Symptoms, Chills, Diaphoresis, Lethargy, Loss of Appetite, Night Sweats, Unintentional Wgt. Loss, Weakness, Other Eyes: denies: No Symptoms, Blind Spots, Blurred Vision, Double Vision, Eye Pain , Floaters, Photophobia, Recent Change in Vision, Other HENT: denies: No Symptoms, Difficult Swallowing, Ear Discharge, Ear Pain, Epistaxis, Gingival Bleeding, Hearing Loss, Mouth Swelling, Nasal Congestion, Ocular Prosthesis, Throat Pain, Toothache, Ringing in Ears, Other Neck: denies: No Symptoms, Decreased ROM, Lumps, Pain on Movement, Stiffness, Swollen Glands, Tenderness, Other Cardiovascular: denies: No Symptoms, Chest Pain, Edema, Palpitations, Shortness of Breath, Other Respiratory: denies: No Symptoms, Cough, Exercise Intolerance, Hemoptysis, Orthopnea, PND, Snoring, SOB, SOB on Exertion, Wheezing, Other Gastrointestinal: denies: No Symptoms, Abdominal Pain, Bloating, Constipation, Diarrhea, Dysphagia, Indigestion, Melena, Nausea, Rectal Bleeding, Vomiting, Vomiting Blood, Other Genitourinary: denies: No Symptoms, Burning, Discharge, Dysuria, Flank Pain, Frequency, Hematuria, Incontinence, Lesions, Menses, Pain, Testicular Mass, Testicular Pain, Testicular Swelling, Urgency, Vaginal Bleeding, Other Breasts: denies: No Symptoms Reported, See HPI, Breast Implants, Discharge from Nipple, Lumps, Pain, Skin Changes, Other Musculoskeletal: denies: No Symptoms, Back Pain, Crepitus, Decreased ROM, Extremity Pain, Joint Pain, Joint Swelling, Muscle Pain, Muscle Cramps, Muscle Weakness, Other Integumentary: denies: No Symptoms, Blister, Bruising, Change in Color, Eczema, Erythema, Incision, Lesions, Lump, Pallor, Pruritis, Rash, Wound, Other Neurological: denies: No Symptoms, Change in LOC, Change in Speech, Confusion, Dizziness, Headache, Incoordination, Numbness, Parasthesia, Pre-Existing Deficit , Seizure, Syncope, Tremors, Unsteady Gait, Weakness, Other Endocrine: denies: No Symptoms, Excessive Sweating, Flushing, Increased Hunger, Increased Thirst, Intolerance to Cold, Intolerance to Heat, Unexplained Weight Gain, Unexplained Weight Loss, Other Hematology/Lymphatic: denies: No Symptoms, Easily Bruised, Excessive Bleeding, Swollen Glands, Other Psychiatric: denies: No Symptoms, Altered Sleep Pattern, Anxiety, Depression, Hallucinations, Panic, Paranoia, Suicidal, Other - Risk Factors Known Risk Factors: Yes: Diabetes Mellitus, Hypercholesterolemia, Hypertension Vital Signs: Vital Signs Temperature 98.6 F 11/13/18 09:00 Pulse Rate 113 H 11/13/18 09:00 Respiratory Rate 18 11/13/18 09:00 Blood Pressure 116/67 11/13/18 09:00 O2 Sat by Pulse Oximetry (%) 99 11/12/18 12:00 Constitutional: Yes: No Distress, Calm Eyes: Yes: Conjunctiva Clear, EOM Intact HENT: Yes: Atraumatic, Normocephalic Neck: Yes: Supple, Trachea Midline Respiratory: Yes: Regular, CTA Bilaterally. No: Rales, Rhonchi, SOB Gastrointestinal: Yes: Normal Bowel Sounds, Soft Cardiovascular: Yes: Regular Rate and Rhythm. No: Bradycardia, Tachycardia, Pulse Irregular, Gallop, Rub, Varicosities JVD: No Carotid Bruit: No PMI: Non-Displaced Heart Sounds: Yes: S1, S2 Murmur: No: Systolic Murmur, Diastolic Murmur Extremities: Yes: WNL Edema: LLE: Trace, RLE: Trace Peripheral Pulses: 2+ Left Doralis Pedis, 2+ Right Dorsalis Pedis Psychiatric: Yes: Alert, Oriented - Other Data Labs, Other Data: CBC, BMP 11/13/18 06:00 11/13/18 05:52 INR, PTT INR 1.14 (0.83-1.09) H 11/13/18 05:57 Troponin, BNP 11/12/18 12:55 Troponin I 0.06 H Troponin, BNP 11/12/18 12:55 Troponin I 0.06 H sinus tach, lae, T wave abnl possible lateral ischemia, no sig changes compared to prior ECGs in office Echo: Report Reviewed Imaging - Results Chest X-ray: Report Reviewed, Image Reviewed EKG: Report Reviewed, Image Reviewed Other: Report Reviewed, Image Reviewed Assessment/Plan Preop cardiac evaluation-for planned toe amputation secondary to gangrene/non- healing ulcer -At this time there is no cardiac contraindication to the planned procedure and would recommend to proceed without delay for additional cardiac work up. -pt is currently in his optimal cardiac condition for the procedure. -cont his current anti-HTN regimen throughout the perioperative period -pt is an intermediate risk for planned low to intermediate risk procedure. Please call with any additional questions.
--- NOTE | 2018-11-13 13:00 | PN ---
Progress Note (short form) - Note Progress Note: Podiatry Brief Note: Patient known to me from wound healing center. Progressive dry gangrene left great toe. Risks, benefits, alternatives to surgery discussed at length. Patient amenable for planned procedure. Cardiology consult appreciated. Plan for left great toe amputation under MAC/Local. Felicia Riley DPM
--- NOTE | 2018-11-13 13:38 | EKG ---
Test Reason : Blood Pressure : / mmHG Vent. Rate : 107 BPM Atrial Rate : 107 BPM P-R Int : 140 ms QRS Dur : 092 ms QT Int : 358 ms P-R-T Axes : 067 085 134 degrees QTc Int : 477 ms SINUS TACHYCARDIA INCOMPLETE RIGHT BUNDLE BRANCH BLOCK SEPTAL INFARCT , AGE UNDETERMINED T WAVE ABNORMALITY, CONSIDER LATERAL ISCHEMIA ABNORMAL ECG Confirmed by Chris Gautam MD ([id number]) on 11/13/2018 1:38:26 PM Referred By: Chris MENDIETA Confirmed By:Chris Gautam MD
--- NOTE | 2018-11-13 13:42 | EKG ---
Test Reason : Blood Pressure : / mmHG Vent. Rate : 121 BPM Atrial Rate : 121 BPM P-R Int : 146 ms QRS Dur : 086 ms QT Int : 336 ms P-R-T Axes : 065 -30 104 degrees QTc Int : 477 ms SINUS TACHYCARDIA POSSIBLE LEFT ATRIAL ENLARGEMENT LEFT AXIS DEVIATION T WAVE ABNORMALITY, CONSIDER LATERAL ISCHEMIA ABNORMAL ECG NO PREVIOUS ECGS AVAILABLE Confirmed by Chris Gautam MD ([id number]) on 11/13/2018 1:41:55 PM Referred By: Confirmed By:Chris Gautam MD
--- NOTE | 2018-11-13 13:57 | PN ---
Progress Note, Physician History of Present Illness: Pt seen and examined at bedside. He is awake and alert. He denies shortness of breath. He denies fevers or chills. He is going for debridement. - Current Medication List Current Medications: Active Medications Acetaminophen (Tylenol -) 650 mg PO Q4H PRN PRN Reason: FEVER Last Admin: 11/13/18 13:50 Dose: 650 mg Aspirin (Asa -) 81 mg PO DAILY [facility] Last Admin: 11/13/18 09:24 Dose: Not Given Clopidogrel Bisulfate (Plavix -) 75 mg PO DAILY [facility] Last Admin: 11/13/18 09:24 Dose: Not Given Ezetimibe (Zetia -) 10 mg PO DAILY [facility] Last Admin: 11/13/18 09:32 Dose: 10 mg Furosemide (Lasix -) 40 mg PO DAILY [facility] Last Admin: 11/13/18 09:25 Dose: 40 mg Hydralazine HCl (Apresoline -) 100 mg PO TID [facility] Last Admin: 11/13/18 05:38 Dose: 100 mg Dextrose/Sodium Chloride (D5-Ns -) 1,000 mls @ 75 mls/hr IV ASDIR [facility] Last Admin: 11/13/18 06:54 Dose: 75 mls/hr Piperacillin Sod/Tazobactam (Sod 2.25 gm/ Dextrose) 50 mls @ 100 mls/hr IVPB Q6H-IV [facility]; Protocol Last Admin: 11/13/18 08:57 Dose: 100 mls/hr Insulin Aspart (Novolog Vial Sliding Scale -) 1 vial SQ ACHS [facility]; Protocol Last Admin: 11/13/18 13:16 Dose: Not Given Insulin Detemir (Levemir Vial) 30 units SQ BID@0700,2200 [facility] Last Admin: 11/13/18 06:08 Dose: 30 units Labetalol HCl (Normodyne -) 100 mg PO BID [facility] Last Admin: 11/13/18 09:29 Dose: 100 mg Mycophenolate Sodium (Mycophenolic Acid) 720 mg PO BID [facility] Last Admin: 11/13/18 09:30 Dose: 720 mg Nifedipine (Procardia Xl -) 60 mg PO BID [facility] Last Admin: 11/13/18 09:28 Dose: 60 mg Prednisone (Deltasone -) 5 mg PO DAILY [facility] Last Admin: 11/13/18 09:25 Dose: 5 mg Sodium Bicarbonate 650 mg/ (Sodium Bicarbonate 325 mg) 975 mg PO BID [facility] Last Admin: 11/13/18 09:30 Dose: 975 mg Tacrolimus 5 mg/ Tacrolimus 2 (mg) 7 mg PO BID [facility] Last Admin: 11/13/18 09:29 Dose: 7 mg Tamsulosin HCl (Flomax -) 0.4 mg PO DAILY@0830 [facility] Last Admin: 11/13/18 08:57 Dose: 0.4 mg - Objective Vital Signs: Vital Signs Temperature 98.6 F 11/13/18 09:00 Pulse Rate 113 H 11/13/18 09:00 Respiratory Rate 18 11/13/18 09:00 Blood Pressure 116/67 11/13/18 09:00 O2 Sat by Pulse Oximetry (%) 99 11/12/18 12:00 Constitutional: Yes: Calm Eyes: Yes: Conjunctiva Clear HENT: Yes: Atraumatic Neck: Yes: Supple Cardiovascular: Yes: S1, S2 Respiratory: Yes: CTA Bilaterally Gastrointestinal: Yes: Soft Genitourinary: Yes: WNL Musculoskeletal: Yes: WNL Edema: Yes Edema: LLE: 1+ Integumentary: Yes: Other (toe gangrene) Neurological: Yes: Oriented Psychiatric: Yes: Oriented Labs: CBC, BMP 11/13/18 06:00 11/13/18 05:52 INR, PTT INR 1.14 (0.83-1.09) H 11/13/18 05:57 Problem List - Problems (1) Kidney transplant recipient Code(s): Z94.0 - KIDNEY TRANSPLANT STATUS (2) CKD (chronic kidney disease) Code(s): N18.9 - CHRONIC KIDNEY DISEASE, UNSPECIFIED (3) Diabetes mellitus Code(s): E11.9 - TYPE 2 DIABETES MELLITUS WITHOUT COMPLICATIONS (4) Fever Code(s): R50.9 - FEVER, UNSPECIFIED (5) Gangrene of left foot Code(s): I96 - GANGRENE, NOT ELSEWHERE CLASSIFIED (6) HTN (hypertension) Code(s): I10 - ESSENTIAL (PRIMARY) HYPERTENSION Assessment/Plan Current Medications Generic Name Dose Route Start Last Admin Trade Name Freq PRN Reason Stop Dose Admin Acetaminophen 650 mg 11/12/18 14:16 11/13/18 13:50 Tylenol - PO 650 mg Q4H PRN Administration FEVER Aspirin 81 mg 11/13/18 10:00 11/13/18 09:24 Asa - PO Not Given DAILY [facility] Clopidogrel Bisulfate 75 mg 11/13/18 10:00 11/13/18 09:24 Plavix - PO Not Given DAILY [facility] Ezetimibe 10 mg 11/13/18 10:00 11/13/18 09:32 Zetia - PO 10 mg DAILY [facility] Administration Furosemide 40 mg 11/13/18 10:00 11/13/18 09:25 Lasix - PO 40 mg DAILY [facility] Administration Hydralazine HCl 100 mg 11/12/18 15:27 11/13/18 05:38 Apresoline - PO 100 mg TID [facility] Administration Dextrose/Sodium Chloride 1,000 mls @ 75 mls/hr 11/12/18 14:30 11/13/18 06:54 D5-Ns - IV 75 mls/hr ASDIR [facility] Administration Piperacillin Sod/Tazobactam 50 mls @ 100 mls/hr 11/12/18 21:00 11/13/18 08:57 Sod 2.25 gm/ Dextrose IVPB 100 mls/hr Q6H-IV [facility] Administration Protocol Insulin Aspart 1 vial 11/12/18 16:30 11/13/18 13:16 Novolog Vial Sliding Scale - SQ Not Given ACHS [facility] Protocol Insulin Detemir 30 units 11/12/18 22:00 11/13/18 06:08 Levemir Vial SQ 30 units BID@0700,2200 [facility] Administration Labetalol HCl 100 mg 11/12/18 22:00 11/13/18 09:29 Normodyne - PO 100 mg BID [facility] Administration Mycophenolate Sodium 720 mg 11/12/18 22:00 11/13/18 09:30 Mycophenolic Acid PO 720 mg BID [facility] Administration Nifedipine 60 mg 11/12/18 22:00 11/13/18 09:28 Procardia Xl - PO 60 mg BID [facility] Administration Prednisone 5 mg 11/13/18 10:00 11/13/18 09:25 Deltasone - PO 5 mg DAILY [facility] Administration Sodium Bicarbonate 650 mg/ 975 mg 11/13/18 10:00 11/13/18 09:30 Sodium Bicarbonate 325 mg PO 975 mg BID [facility] Administration Tacrolimus 5 mg/ Tacrolimus 2 7 mg 11/12/18 22:00 11/13/18 09:29 mg PO 7 mg BID [facility] Administration Tamsulosin HCl 0.4 mg 11/13/18 08:30 11/13/18 08:57 Flomax - PO 0.4 mg DAILY@0830 [facility] Administration Impression 1. Kidney transplant 2. HTN 3. pvd 4. left toe gangrene 5. met acidosis 6. DM Plan - cont transplant meds - follow prograf level - check renal ultrasound - follow cultures - change fluids to ns - will need better glucose control - repeat labs in am transplant med: prograf 7 mg bid prednisone 5 mg mmf 360 mg tab, 2 tabs bid - cont fluids and repeat labs in am - avoid nsaids and nephrotoxins
[2018-11-13] MEDS ORDERED: SODIUM CHLORIDE 1,000 ML IV SCH ×3 (14:00→19:58)
--- NOTE | 2018-11-13 14:03 | CONSULT ---
Consult - text type - Consultation Consultation Note: Asked to address abnormal ECG with IRBBB and elevated troponin. No evidence of ACS. The troponin is due to a nonischemic pattern from renal disease and metabolic stress from gangrene. IRBBB is benign. No further cardiac testing is needed preoperatively. There are no cardiac contraindications to surgery.
--- NOTE | 2018-11-13 14:24 | PN ---
Progress Note, Physician Chief Complaint: Toe Gangrene Sepsis History of Present Illness: Previous notes and events reviewed awake and alert NAD complain of vomiting and acid reflux x 2 episodes patient is cleared by cardiology for Surgery today febrile with temp 101F - Current Medication List Current Medications: Active Medications Acetaminophen (Tylenol -) 650 mg PO Q4H PRN PRN Reason: FEVER Last Admin: 11/13/18 13:50 Dose: 650 mg Aspirin (Asa -) 81 mg PO DAILY [facility] Last Admin: 11/13/18 09:24 Dose: Not Given Clopidogrel Bisulfate (Plavix -) 75 mg PO DAILY [facility] Last Admin: 11/13/18 09:24 Dose: Not Given Ezetimibe (Zetia -) 10 mg PO DAILY [facility] Last Admin: 11/13/18 09:32 Dose: 10 mg Furosemide (Lasix -) 40 mg PO DAILY [facility] Last Admin: 11/13/18 09:25 Dose: 40 mg Hydralazine HCl (Apresoline -) 100 mg PO TID [facility] Last Admin: 11/13/18 13:58 Dose: 100 mg Piperacillin Sod/Tazobactam (Sod 2.25 gm/ Dextrose) 50 mls @ 100 mls/hr IVPB Q6H-IV [facility]; Protocol Last Admin: 11/13/18 13:59 Dose: 100 mls/hr Sodium Chloride (Normal Saline -) 1,000 mls @ 75 mls/hr IV ASDIR [facility] Insulin Aspart (Novolog Vial Sliding Scale -) 1 vial SQ ACHS [facility]; Protocol Last Admin: 11/13/18 13:16 Dose: Not Given Insulin Detemir (Levemir Vial) 30 units SQ BID@0700,2200 [facility] Last Admin: 11/13/18 06:08 Dose: 30 units Labetalol HCl (Normodyne -) 100 mg PO BID [facility] Last Admin: 11/13/18 09:29 Dose: 100 mg Mycophenolate Sodium (Mycophenolic Acid) 720 mg PO BID [facility] Last Admin: 11/13/18 09:30 Dose: 720 mg Nifedipine (Procardia Xl -) 60 mg PO BID [facility] Last Admin: 11/13/18 09:28 Dose: 60 mg Prednisone (Deltasone -) 5 mg PO DAILY [facility] Last Admin: 11/13/18 09:25 Dose: 5 mg Sodium Bicarbonate 650 mg/ (Sodium Bicarbonate 325 mg) 975 mg PO BID [facility] Last Admin: 11/13/18 09:30 Dose: 975 mg Tacrolimus 5 mg/ Tacrolimus 2 (mg) 7 mg PO BID [facility] Last Admin: 11/13/18 09:29 Dose: 7 mg Tamsulosin HCl (Flomax -) 0.4 mg PO DAILY@0830 [facility] Last Admin: 11/13/18 08:57 Dose: 0.4 mg - Objective Vital Signs: Vital Signs Temperature 98.6 F 11/13/18 09:00 Pulse Rate 113 H 11/13/18 09:00 Respiratory Rate 18 11/13/18 09:00 Blood Pressure 116/67 11/13/18 09:00 O2 Sat by Pulse Oximetry (%) 99 11/12/18 12:00 Constitutional: Yes: No Distress, Calm Eyes: Yes: Conjunctiva Clear HENT: Yes: Atraumatic Cardiovascular: Yes: Tachycardia Respiratory: Yes: Regular, CTA Bilaterally Gastrointestinal: Yes: Normal Bowel Sounds, Soft Musculoskeletal: Yes: WNL Extremities: Yes: WNL Edema: Yes Edema: LLE: Trace Integumentary: Yes: Other (gangrene L great toe) Wound/Incision: Yes: Open to air Neurological: Yes: Alert, Oriented Psychiatric: Yes: Alert, Oriented Labs: CBC, BMP 11/13/18 06:00 11/13/18 05:52 INR, PTT INR 1.14 (0.83-1.09) H 11/13/18 05:57 Microbiology 11/12/18 12:50 Blood - Peripheral Venous Blood Culture - Preliminary NO GROWTH OBTAINED AFTER 24 HOURS, INCUBATION TO CONTINUE FOR 4 DAYS. 11/12/18 12:55 Blood - Peripheral Venous Blood Culture - Preliminary NO GROWTH OBTAINED AFTER 24 HOURS, INCUBATION TO CONTINUE FOR 4 DAYS. Problem List - Problems (1) Fever Assessment/Plan: -ID on board -WBC 19.2 -Vancomycin, Zosyn -UA shows Leuks 2+, positive nitrite -tylenol for temp >100F -BC neg -UC pending Code(s): R50.9 - FEVER, UNSPECIFIED (2) Gangrene of left foot Assessment/Plan: -Podiatry and Vascular on board -NPO--surgery today, toe amputation -IV hydration Code(s): I96 - GANGRENE, NOT ELSEWHERE CLASSIFIED (3) HTN (hypertension) Assessment/Plan: -Hydralazine, Labetolol, Nifedipine -low Na diet when resume PO intake Code(s): I10 - ESSENTIAL (PRIMARY) HYPERTENSION (4) Diabetes mellitus Assessment/Plan: -BGM ACHS -Levemir -ISS -diabetic diet when resume PO intake -HgA1c Code(s): E11.9 - TYPE 2 DIABETES MELLITUS WITHOUT COMPLICATIONS (5) Systemic inflammatory response syndrome (SIRS) Assessment/Plan: -ID on board -WBC 19.2 -febrile -BC neg -UC pending -LA 2.5-->1.4 -Vancomycin, Zosyn Code(s): R65.10 - SIRS OF NON-INFECTIOUS ORIGIN W/O ACUTE ORGAN DYSFUNCTION (6) Kidney transplant recipient Assessment/Plan: -Renal on board -pending Renal US -BUN/Cr 39/2.7 -monitor renal function daily -continue prograf Code(s): Z94.0 - KIDNEY TRANSPLANT STATUS Assessment/Plan see problem list dvt ppx
--- NOTE | 2018-11-13 14:27 | PN ---
Progress Note (short form) - Note Progress Note: still some nausea reports acid reflux no abdominal pain Vital Signs Period Temp Pulse Resp BP Sys/Moseley Pulse Ox Last 24 Hr 98.6 F-100.9 F 99-113 18-20 116-143/66-70 cor-rrr lungs clear abd soft,nt ext gangrene big toe unchanged CBC, BMP 11/13/18 06:00 11/13/18 05:52 Microbiology 11/12/18 12:50 Blood - Peripheral Venous Blood Culture - Preliminary NO GROWTH OBTAINED AFTER 24 HOURS, INCUBATION TO CONTINUE FOR 4 DAYS. 11/12/18 12:55 Blood - Peripheral Venous Blood Culture - Preliminary NO GROWTH OBTAINED AFTER 24 HOURS, INCUBATION TO CONTINUE FOR 4 DAYS. urine culture pending a/p fever gangrene of toe pyuria continue vancomycin by level (10) this am- redose today and f/u in am continue zosyn renal sonogram surgery per podiatry left big toe d/w dr frances- prior history of ecoli esbl uti with bacteremia at [facility]- will isolate - contact for ecoli esbl switch to meropenem until cultures are back Problem List - Problems (1) Fever Code(s): R50.9 - FEVER, UNSPECIFIED (2) Gangrene of left foot Code(s): I96 - GANGRENE, NOT ELSEWHERE CLASSIFIED
[2018-11-13] MEDS ORDERED: VANCOMYCIN 1 GRAM (PRE-DOCKED) 1,000 MG/250 ML BAG IVPB ONE (14:30)
[2018-11-13] MEDS ORDERED: ONDANSETRON 4 MG/2 ML VIAL IVPB PRN ×2 (16:46→19:58)
[2018-11-13] MEDS ORDERED: PROPOFOL 20 ML ONE (18:27)
[2018-11-13] MEDS ORDERED: MIDAZOLAM HCL 2 MG/2 ML SINGLE DOSE VIAL ONE ×2 (18:29→18:41)
[2018-11-13] MEDS ORDERED: LIDOCAINE HCL 1%, 10 MG/ML (20ML VIAL) INF ONE (18:57)
--- NOTE | 2018-11-13 19:17 | OP ---
Operative Note - Note: Operative Date: 11/13/18 Pre-Operative Diagnosis: Left great toe gangrene Operation: left great toe amputation with first metatarsal head resection Post-Operative Diagnosis: Same as Pre-op Surgeon: Ole Riley Anesthesia: Local, MAC Specimens Removed: left great toe Estimated Blood Loss (mls): 15 Operative Report Dictated: Yes
[2018-11-13] MEDS ORDERED: LACTATED RINGERS SOLUTION 1,000 ML IV SCH (19:30)
[2018-11-13] MEDS ORDERED: ACETAMINOPHEN 325 MG TABLET (FP) PO PRN (19:58)
[2018-11-13] MEDS ORDERED: MEROPENEM 1 GM VIAL (RESTRICTED TO ID) IVPB ONE (21:11)
[2018-11-13] MEDS ORDERED: DEXTROSE 5%-WATER 100 ML IVPB ONE (21:12)
[2018-11-13] MEDS ORDERED: INSULIN (NOVOLOG) ASPART 100 UNITS/ML 10ML VIAL ONE (21:18)
[2018-11-13] MEDS ORDERED: MEROPENEM 1 GM in DEXTROSE 5%-WATER 100 ML IVPB SCH (22:00)
[2018-11-13] MEDS: SODIUM BICARBONATE PO SCH (22:02)
[2018-11-13] MEDS: MEROPENEM 1 GM in DEXTROSE 5%-WATER 100 ML IVPB SCH (22:02)
[2018-11-14] MEDS: ONDANSETRON 4 MG/2 ML VIAL IVPUSH PRN ×2 (02:01→09:30)
[2018-11-14] MEDS: hydrALAZINE HCL 50 MG TABLET (FP) PO SCH ×3 (05:00→22:08)
[2018-11-14] MEDS: INSULIN (LEVEMIR) 100 UNITS/ML UNITS SQ SCH ×2 (06:18→22:10)
[2018-11-14] MEDS: INSULIN SLIDING SCALE (NOVOLOG) 1 VIAL SQ SCH ×4 (06:18→22:08)
[2018-11-14] MEDS ORDERED: TAMSULOSIN HCL 0.4 MG CAP PO SCH (08:30)
[2018-11-14 08:48] LABS: HEMATOCRIT 27.2 % (35.4-49); HEMOGLOBIN 8.9 GM/dL (11.7-16.9); MCH 29.6 pg (25.7-33.7); MCHC 32.6 g/dl (32.0-35.9); MEAN CELL VOLUME 90.7 fl (80-96); MEAN PLT VOLUME 9.6 fl (7.5-11.1); PLATELET COUNT 281 K/MM3 (134-434); RDW 15.4 % (11.9-15.9); WHITE BLOOD COUNT 18.4 K/mm3 (4.0-10.0)
[2018-11-14 08:50] LABS: ALBUMIN 2.1 g/dl (3.4-5.0); BILIRUBIN,TOTAL 0.9 mg/dL (0.2-1); BLOOD UREA NITROGEN 47.5 mg/dL (7-18); CALCIUM 8.2 mg/dL (8.5-10.1); CREATININE 3.6 mg/dL (0.55-1.3); POTASSIUM 3.9 mmol/L (3.5-5.1); TOT PROT 5.8 g/dl (6.4-8.2)
[2018-11-14] MEDS ORDERED: ONDANSETRON 4 MG/2 ML VIAL ONE (09:55)
[2018-11-14] MEDS ORDERED: ASPIRIN 81 MG CHEWABLE TABLETS PO SCH (10:00)
[2018-11-14] MEDS ORDERED: EZETIMIBE 10 MG TABLET (FP) PO SCH (10:00)
[2018-11-14] MEDS ORDERED: PANTOPRAZOLE SODIUM 40 MG VIAL IVPUSH SCH ×2 (10:00)
[2018-11-14] MEDS ORDERED: FUROSEMIDE 40 MG TABLET (FP) PO SCH (10:00)
[2018-11-14] MEDS ORDERED: MUPIROCIN 2% TOPICAL OINTMENT FOR DECOLONIZATION NS SCH (10:00)
[2018-11-14] MEDS ORDERED: CLOPIDOGREL BISULFATE 75 MG TABLET (FP) PO SCH (10:00)
[2018-11-14] MEDS ORDERED: predniSONE 5 MG TABLET (UD) PO SCH (10:00)
--- NOTE | 2018-11-14 10:00 | PN ---
Progress Note, Physician Chief Complaint: AWAKE ALERT +VOMITING ABD PAIN WITH FEVER POD #1 - Current Medication List Current Medications: Active Medications Acetaminophen (Tylenol -) 650 mg PO Q4H PRN PRN Reason: FEVER Last Admin: 11/14/18 04:59 Dose: 650 mg Aspirin (Asa -) 81 mg PO DAILY [facility] Chlorhexidine Gluconate (Hibiclens For Decolonization -) 1 applic TP HS [facility] Clopidogrel Bisulfate (Plavix -) 75 mg PO DAILY [facility] Ezetimibe (Zetia -) 10 mg PO DAILY [facility] Fentanyl (Sublimaze Injection -) 25 mcg IVPUSH Q5M PRN PRN Reason: PAIN-PACU ORDER X 4 DOSES ONLY Furosemide (Lasix -) 40 mg PO DAILY [facility] Hydralazine HCl (Apresoline -) 100 mg PO TID [facility] Last Admin: 11/14/18 05:00 Dose: 100 mg Lactated Ringer's (Lactated Ringers Solution) 1,000 mls @ 125 mls/hr IV ASDIR [facility] Last Admin: 11/14/18 01:57 Dose: Not Given Meropenem 1 gm/ Dextrose 100 mls @ 200 mls/hr IVPB Q12H [facility] Last Admin: 11/13/18 22:02 Dose: 200 mls/hr Sodium Chloride (Normal Saline -) 1,000 mls @ 75 mls/hr IV ASDIR [facility] Last Admin: 11/14/18 01:57 Dose: Not Given Insulin Aspart (Novolog Vial Sliding Scale -) 1 vial SQ ACHS [facility]; Protocol Last Admin: 11/14/18 06:18 Dose: 2 units Insulin Detemir (Levemir Vial) 30 units SQ BID@0700,2200 [facility] Last Admin: 11/14/18 06:18 Dose: 30 units Labetalol HCl (Normodyne -) 100 mg PO BID [facility] Last Admin: 11/13/18 22:00 Dose: 100 mg Mupirocin (Bactroban Ointment (For Decolonization) -) 1 applic NS BID [facility] Stop: 11/19/18 09:59 Mycophenolate Sodium (Mycophenolic Acid) 720 mg PO BID [facility] Last Admin: 11/13/18 22:01 Dose: 720 mg Nifedipine (Procardia Xl -) 60 mg PO BID [facility] Last Admin: 11/13/18 22:02 Dose: 60 mg Ondansetron HCl (Zofran Injection) 4 mg IVPUSH Q6H PRN PRN Reason: NAUSEA AND/OR VOMITING Last Admin: 11/14/18 02:01 Dose: 4 mg Ondansetron HCl (Zofran Injection) 4 mg IVPB Q6H PRN PRN Reason: NAUSEA AND/OR VOMITING Pantoprazole Sodium (Protonix Iv) 40 mg IVPUSH DAILY [facility] Prednisone (Deltasone -) 5 mg PO DAILY [facility] Sodium Bicarbonate 650 mg/ (Sodium Bicarbonate 325 mg) 975 mg PO BID [facility] Last Admin: 11/13/18 22:02 Dose: 975 mg Tacrolimus 5 mg/ Tacrolimus 2 (mg) 7 mg PO BID [facility] Last Admin: 11/13/18 22:00 Dose: 7 mg Tamsulosin HCl (Flomax -) 0.4 mg PO DAILY@0830 [facility] Last Admin: 11/14/18 08:19 Dose: 0.4 mg - Objective Vital Signs: Vital Signs Temperature 100.9 F H 11/14/18 06:45 Pulse Rate 93 H 11/14/18 06:45 Respiratory Rate 20 11/14/18 06:45 Blood Pressure 132/62 11/14/18 06:45 O2 Sat by Pulse Oximetry (%) 98 11/13/18 21:00 Constitutional: Yes: Moderate Distress Cardiovascular: Yes: Tachycardia, Pulse Irregular Respiratory: Yes: Diminished Gastrointestinal: Yes: Soft, Distention Genitourinary: Yes: Other Musculoskeletal: Yes: Muscle Weakness Edema: Yes Wound/Incision: Yes: Dressing Dry and Intact, Bleeding Neurological: Yes: Pre-Existing Deficit ...Motor Strength: RLE Labs: CBC, BMP 11/14/18 07:30 11/14/18 07:30 INR, PTT INR 1.14 (0.83-1.09) H 11/13/18 05:57 Problem List - Problems (1) CKD (chronic kidney disease) Code(s): N18.9 - CHRONIC KIDNEY DISEASE, UNSPECIFIED (2) Diabetes mellitus Code(s): E11.9 - TYPE 2 DIABETES MELLITUS WITHOUT COMPLICATIONS (3) Fever Code(s): R50.9 - FEVER, UNSPECIFIED (4) Gangrene of left foot Code(s): I96 - GANGRENE, NOT ELSEWHERE CLASSIFIED (5) HTN (hypertension) Code(s): I10 - ESSENTIAL (PRIMARY) HYPERTENSION (6) Kidney transplant recipient Code(s): Z94.0 - KIDNEY TRANSPLANT STATUS (7) Tachycardia Code(s): R00.0 - TACHYCARDIA, UNSPECIFIED Assessment/Plan TRANSFERRING TO ICU FOR CARDIAC AND INTENSIVE CARE MONITORING IV ABX PER ID CARDIAC ENZYMES STAT/EKG CXR/ABD XRAY STAT RO INFILTRATE/ILEUS MONITOR BGM CHECKS D/W ICU IVF GENTLY NEPHROLOGY EVAL
--- NOTE | 2018-11-14 10:10 | PN ---
Progress Note (short form) - Note Progress Note: still some nausea no abdominal pain, no chest pain fever to 100.9 with chills this am started on meropenem last night for history of ecoli esbl uti/sepsis- d/w Dr Arambula last night d/p amputation of the left big toe 11/13 Vital Signs Period Temp Pulse Resp BP Sys/Moseley Pulse Ox Last 24 Hr 97.8 F-100.9 F 88-109 16-20 113-135/51-66 95-100 cor-irreg lungs clear abd distended, nt postop dressing intact CBC, BMP 11/14/18 07:30 11/14/18 07:30 Microbiology 11/13/18 00:00 Urine - Urine Clean Catch Urine Culture - Preliminary Lactose Fermenting Neg Bacilli 11/12/18 12:50 Blood - Peripheral Venous Blood Culture - Preliminary NO GROWTH OBTAINED AFTER 24 HOURS, INCUBATION TO CONTINUE FOR 4 DAYS. 11/12/18 12:55 Blood - Peripheral Venous Blood Culture - Preliminary NO GROWTH OBTAINED AFTER 24 HOURS, INCUBATION TO CONTINUE FOR 4 DAYS. sonogram- no hydronephrosis noted a/p fever gangrene of toe-s/p amputation- POD #1 UTI evelyn/ckd renal transplant 2016 continue meropenem continue vancomycin by level (level pending) repeat blood cultures EKG stat renal f/u, will check bladder scan contact isolation history of ecoli esbl UTI/sepsis d/w Dr Mei for transfer to ICU Problem List - Problems (1) Fever Code(s): R50.9 - FEVER, UNSPECIFIED (2) Gangrene of left foot Code(s): I96 - GANGRENE, NOT ELSEWHERE CLASSIFIED
[2018-11-14] MEDS ORDERED: DEXTROSE 5%-WATER 100 ML IVPB ONE ×2 (10:11→21:39)
[2018-11-14] MEDS ORDERED: MEROPENEM 1 GM VIAL (RESTRICTED TO ID) IVPB ONE ×2 (10:11→21:39)
[2018-11-14] MEDS: MEROPENEM 1 GM in DEXTROSE 5%-WATER 100 ML IVPB SCH ×2 (10:33→22:10)
[2018-11-14] MEDS: LABETALOL HCL 100 MG TABLET (FP) PO SCH ×2 (10:35→22:08)
--- NOTE | 2018-11-14 10:36 | OP ---
DATE OF OPERATION: 11/13/2018 PREOPERATIVE DIAGNOSIS: Left hallux gangrene. POSTOPERATIVE DIAGNOSIS: Left hallux gangrene. PROCEDURE: Left hallux amputation with 1st metatarsal head resection. SURGEON: Ole Riley DPM POLICE CHIEF: None. ANESTHESIA: IV sedation with local. HEMOSTASIS: Surgical dissection. ESTIMATED BLOOD LOSS: Minimal. PATHOLOGY: Left great toe, left 1st metatarsal bone. DESCRIPTION OF PROCEDURE: The patient was brought to the operating room and placed on the operating table in the supine position. Following the induction of IV sedation, local anesthesia was achieved utilizing 10 mL of 2% lidocaine plain. The left foot was scrubbed, prepped, and draped in the usual sterile fashion. Attention was directed to the left great toe, where there were dry gangrenous changes to the hallux at the level of the 1st metatarsophalangeal joint distally. In addition, there was some blistering noted along the plantar arch. I began by performing a 4-cm linear longitudinal incision overlying the 1st metatarsal. The incision was carried circumferentially about the great toe at the level of the metatarsophalangeal joint. The incision was carried deeply using sharp and blunt dissection taking care to retract vital neural and vascular structures. All bleeders were cauterized and ligated as needed. Next, the great toe was disarticulated at the level of the metatarsophalangeal joint. The great toe was removed and sent to Pathology for analysis. Additionally the sesamoid bones were removed from the operative site and sent for Pathology. A wound culture was obtained as well as a bone culture from the amputated site. Next, a linear capsular incision was made overlying the 1st metatarsal head. The 1st metatarsal head was resected using a sagittal saw. It was removed from the operative site and sent to Pathology for proximal bone pathology. Next, upon inspection of the tissues, tissues were friable and fibrotic. There was also a tracking area plantarly along the arch from the 1st metatarsophalangeal joint. This area was probed and loculated lesions were removed. Next, the surgical site was copiously irrigated with sterile saline. The surgical site was then packed with 0.25-inch Iodoform packing. The incision was coapted and maintained loosely using 3-0 nylon in a simple interrupted suture fashion. Following the conclusion of the procedure, the surgical site was covered with Xeroform and a sterile compressive dressing was applied to the left foot consisting of sterile gauze, Nestor, Kerlix, and an MARIAN wrap. The patient tolerated the procedure and anesthesia well without complications. He was transferred from the operating room to the recovery unit with vital signs stable and neurovasculature intact to the left foot. BRETT VERONICA/[id number] cc: [facility]
[2018-11-14] MEDS: NIFEdipine E.R 60 MG TABLET (UD) PO SCH ×2 (10:37→22:14)
[2018-11-14] MEDS ORDERED: SODIUM CHLORIDE 1,000 ML IV STA (10:37)
--- NOTE | 2018-11-14 10:37 | CONSULT ---
Consultation: REQUESTING PROVIDER: Dr. Mei CONSULT REQUEST: We have been asked to medically evaluate this patient for sepsis, hx renal transplant HISTORY OF PRESENT ILLNESS: 63 year old male with a history of hypertension, diabetes, renal transplant in 2016 ([facility]) presented to the hospital for infection of his L great toe with accompanying fevers, chills, and diarrhea. Started hyperbaric O2 treatment last week. Patient is POD1 L great toe amputation with first metatarsal head resection. He has been on IV antibiotics vancomycin/zosyn since 11/12 (now on meropenem). Today, patient noted to be febrile to 100.9, tachycardic and noted to have some bleeding at the site of surgery during dressing change. ICU was called to evaluate sepsis in the setting of immunosuppression and hx of kidney transplant with rising creatinine. Currently patient reports that he vomited NBNB emesis today and is still mildly nauseous. Denies any chest pain or shortness of breath, abdominal pain, swelling of his legs. REVIEW OF SYSTEMS: CONSTITUTIONAL: fever Absent: chills, diaphoresis, generalized weakness, malaise, loss of appetite, weight change HEENT: Absent: rhinorrhea, nasal congestion, throat pain, throat swelling, difficulty swallowing, mouth swelling, ear pain, eye pain, visual changes CARDIOVASCULAR: Absent: chest pain, syncope, palpitations, irregular heart rate, lightheadedness , peripheral edema RESPIRATORY: Absent: cough, shortness of breath, dyspnea with exertion, orthopnea, wheezing, stridor, hemoptysis GASTROINTESTINAL:nausea, vomiting Absent: abdominal pain, abdominal distension, diarrhea, constipation, melena, hematochezia GENITOURINARY: Absent: dysuria, frequency, urgency, hesitancy, hematuria, flank pain, genital pain MUSCULOSKELETAL: Absent: myalgia, arthralgia, joint swelling, back pain, neck pain SKIN: Absent: rash, itching, pallor HEMATOLOGIC/IMMUNOLOGIC: Absent: easy bleeding, easy bruising, lymphadenopathy, frequent infections ENDOCRINE: Absent: unexplained weight gain, unexplained weight loss, heat intolerance, cold intolerance NEUROLOGIC: Absent: headache, focal weakness or paresthesias, dizziness, unsteady gait, seizure, mental status changes, bladder or bowel incontinence PSYCHIATRIC: Absent: anxiety, depression, suicidal or homicidal ideation, hallucinations. PHYSICAL EXAMINATION Vital Signs - 24 hr 11/13/18 11/13/18 11/13/18 14:00 16:30 19:20 Temperature 99.9 F H 98.3 F 97.8 F Pulse Rate 109 H 99 H 102 H Respiratory 18 20 18 Rate Blood Pressure 116/51 L 115/60 124/64 O2 Sat by Pulse 96 Oximetry (%) 11/13/18 11/13/18 11/13/18 19:35 19:50 20:05 Temperature Pulse Rate 98 H 100 H 99 H Respiratory 16 16 16 Rate Blood Pressure 132/59 L 130/60 134/62 O2 Sat by Pulse 100 96 96 Oximetry (%) 11/13/18 11/13/18 11/13/18 20:20 20:35 20:49 Temperature 99.2 F Pulse Rate 100 H 96 H 98 H Respiratory 16 16 16 Rate Blood Pressure 131/60 133/60 135/66 O2 Sat by Pulse 95 95 95 Oximetry (%) 11/13/18 11/14/18 11/14/18 21:00 02:07 06:45 Temperature 98.5 F 99.6 F 100.9 F H Pulse Rate 102 H 88 93 H Respiratory 18 20 20 Rate Blood Pressure 119/54 L 113/64 132/62 O2 Sat by Pulse 98 Oximetry (%) GENERAL: A&Ox3, no acute distress EYES: PERRLA, EOMI ENT: Dry mucus membranes NECK: Mild JVD noted LUNGS: mild rhonchi noted at the bases HEART: tachycardic, soft systolic murmur auscultated on exam ABDOMEN: Soft, nontender, BS present EXTREMITIES: 2+ pulses, no edema noted, s/p L great toe amputation, no visible blood on fresh dressing NEUROLOGICAL: Cranial nerves II-XII intact. Laboratory Results - last 24 hr 11/13/18 11/13/18 11/13/18 05:57 06:00 11:24 WBC RBC Hgb Hct MCV MCH MCHC RDW Plt Count MPV Neutrophils % (Manual) 90.3 H Band Neutrophils % 2.6 Lymphocytes % (Manual) 0.0 L Monocytes % (Manual) 7 D Eosinophils % (Manual) 0.0 Basophils % (Manual) 0.0 Myelocytes % (Man) 0 Promyelocytes % (Man) 0 Blast Cells % (Manual) 0 Metamyelocytes 0 Hypochromia 0 Platelet Estimate Normal Polychromasia 0 Poikilocytosis 0 Anisocytosis 0 Microcytosis 0 Macrocytosis 0 Sodium Potassium Chloride Carbon Dioxide Anion Gap BUN Creatinine Est GFR (CKD-EPI)AfAm Est GFR (CKD-EPI)NonAf POC Glucometer 275 Random Glucose Hemoglobin A1c % 8.3 H Calcium Total Bilirubin AST ALT Alkaline Phosphatase Creatine Kinase Creatine Kinase Index CK-MB (CK-2) Troponin I Total Protein Albumin 11/13/18 11/13/18 11/13/18 12:14 19:26 21:58 WBC RBC Hgb Hct MCV MCH MCHC RDW Plt Count MPV Neutrophils % (Manual) Band Neutrophils % Lymphocytes % (Manual) Monocytes % (Manual) Eosinophils % (Manual) Basophils % (Manual) Myelocytes % (Man) Promyelocytes % (Man) Blast Cells % (Manual) Metamyelocytes Hypochromia Platelet Estimate Polychromasia Poikilocytosis Anisocytosis Microcytosis Macrocytosis Sodium Potassium Chloride Carbon Dioxide Anion Gap BUN Creatinine Est GFR (CKD-EPI)AfAm Est GFR (CKD-EPI)NonAf POC Glucometer 283 319 Random Glucose Hemoglobin A1c % Calcium Total Bilirubin AST ALT Alkaline Phosphatase Creatine Kinase 199 Creatine Kinase Index 1.8 CK-MB (CK-2) 3.6 Troponin I 0.11 H Total Protein Albumin 11/14/18 11/14/18 11/14/18 06:17 07:30 07:30 WBC 18.4 H RBC 3.00 L Hgb 8.9 L Hct 27.2 L MCV 90.7 MCH 29.6 MCHC 32.6 RDW 15.4 Plt Count 281 MPV 9.6 Neutrophils % (Manual) Band Neutrophils % Lymphocytes % (Manual) Monocytes % (Manual) Eosinophils % (Manual) Basophils % (Manual) Myelocytes % (Man) Promyelocytes % (Man) Blast Cells % (Manual) Metamyelocytes Hypochromia Platelet Estimate Polychromasia Poikilocytosis Anisocytosis Microcytosis Macrocytosis Sodium 137 Potassium 3.9 Chloride 104 Carbon Dioxide 21 Anion Gap 12 BUN 47.5 H Creatinine 3.6 H Est GFR (CKD-EPI)AfAm 19.51 Est GFR (CKD-EPI)NonAf 16.83 POC Glucometer 236 Random Glucose 235 H Hemoglobin A1c % Calcium 8.2 L Total Bilirubin 0.9 AST 17 ALT 25 Alkaline Phosphatase 137 H Creatine Kinase Creatine Kinase Index CK-MB (CK-2) Troponin I Total Protein 5.8 L Albumin 2.1 L Active Medications Generic Name Dose Route Start Last Admin Trade Name Freq PRN Reason Stop Dose Admin Acetaminophen 650 mg 11/13/18 19:58 11/14/18 04:59 Tylenol - PO 650 mg Q4H PRN Administration FEVER Aspirin 81 mg 11/14/18 10:00 Asa - PO DAILY [facility] Chlorhexidine Gluconate 1 applic 11/14/18 22:00 Hibiclens For Decolonization - TP HS [facility] Clopidogrel Bisulfate 75 mg 11/14/18 10:00 Plavix - PO DAILY [facility] Ezetimibe 10 mg 11/14/18 10:00 Zetia - PO DAILY [facility] Fentanyl 25 mcg 11/13/18 19:25 Sublimaze Injection - IVPUSH Q5M PRN PAIN-PACU ORDER X 4 DOSES ONLY Furosemide 40 mg 11/14/18 10:00 Lasix - PO DAILY [facility] Hydralazine HCl 100 mg 11/13/18 22:00 11/14/18 05:00 Apresoline - PO 100 mg TID [facility] Administration Lactated Ringer's 1,000 mls @ 125 mls/hr 11/13/18 19:30 11/14/18 01:57 Lactated Ringers Solution IV Not Given ASDIR [facility] Meropenem 1 gm/ Dextrose 100 mls @ 200 mls/hr 11/13/18 22:00 11/13/18 22:02 IVPB 200 mls/hr Q12H [facility] Administration Sodium Chloride 1,000 mls @ 75 mls/hr 11/13/18 19:58 11/14/18 01:57 Normal Saline - IV Not Given ASDIR [facility] Insulin Aspart 1 vial 11/13/18 22:00 11/14/18 06:18 Novolog Vial Sliding Scale - SQ 2 units ACHS [facility] Administration Protocol Insulin Detemir 30 units 11/13/18 22:00 11/14/18 06:18 Levemir Vial SQ 30 units BID@0700,2200 [facility] Administration Labetalol HCl 100 mg 11/13/18 22:00 11/13/18 22:00 Normodyne - PO 100 mg BID [facility] Administration Mupirocin 1 applic 11/14/18 10:00 Bactroban Ointment (For Decolonization) - NS 11/19/18 09:59 BID [facility] Mycophenolate Sodium 720 mg 11/13/18 22:00 11/13/18 22:01 Mycophenolic Acid PO 720 mg BID [facility] Administration Nifedipine 60 mg 11/13/18 22:00 11/13/18 22:02 Procardia Xl - PO 60 mg BID [facility] Administration Ondansetron HCl 4 mg 11/13/18 19:25 11/14/18 02:01 Zofran Injection IVPUSH 4 mg Q6H PRN Administration NAUSEA AND/OR VOMITING Ondansetron HCl 4 mg 11/13/18 19:58 Zofran Injection IVPB Q6H PRN NAUSEA AND/OR VOMITING Pantoprazole Sodium 40 mg 11/14/18 10:00 Protonix Iv IVPUSH DAILY [facility] Prednisone 5 mg 11/14/18 10:00 Deltasone - PO DAILY [facility] Sodium Bicarbonate 650 mg/ 975 mg 11/13/18 22:00 11/13/18 22:02 Sodium Bicarbonate 325 mg PO 975 mg BID [facility] Administration Tacrolimus 5 mg/ Tacrolimus 2 7 mg 11/13/18 22:00 11/13/18 22:00 mg PO 7 mg BID [facility] Administration Tamsulosin HCl 0.4 mg 11/14/18 08:30 11/14/18 08:19 Flomax - PO 0.4 mg DAILY@0830 [facility] Administration ASSESSMENT/PLAN: 63 year old male with a history of hypertension, diabetes, renal transplant in 2015 ([facility]) presented to the hospital for infection of his L great toe with accompanying fevers, chills, and diarrhea, admitted for gangrenous L great toe and transferred to ICU for monitoring in the setting of sepsis #Sepsis 2/2 gangrenous L toe #Acute Kidney Injury #Hx renal transplant #Hypertension #Diabetes Mellitus Neurologic -no acute issues Cardiovascular -tachycardic, could be from sepsis in conjunction to pain - tachycardia was in the 90s on my exam -EKG was unchanged from prior; sinus tachycardia with T wave inversions in lateral leads -BP within normal limits, continue antihypertensives nifedipine, labetalol, hydralazine; hold lasix in the setting of sepsis -will need to bolus with NS Pulmonary -no acute issues Gastrointestinal -nausea, not currently vomiting -IV hydration, will monitor Renal -s/p renal transplant in 2015, on immunosuppressive medications -continue tacrolimus, prednisone, mmf held by renal -creatinine was trending up, hydrate and recheck BMP in PM -will initiate transfer to Dr. Madeline rosas (transplant renal) there is aware Infectious Diseases -urinary tract infection -L great toe gangrene -on meropenem now, abx day 3 -cultures drawn -ID following Endocrine -DM - SS/BGMs FEN -liter bolus now -recheck BMP in PM -renal diet Disposition -ICU, will initiate transfer Visit type - Emergency Visit Emergency Visit: No - New Patient This patient is new to me today: Yes Date on this admission: 11/14/18 - Critical Care Critical Care patient: Yes Total Critical Care Time (in minutes): 36 Critical Care Statement: The care of this patient involved high complexity decision making to prevent further life threatening deterioration of the patient 's condition and/or to evaluate & treat vital organ system(s) failure or risk of failure. ATTENDING PHYSICIAN STATEMENT I saw and evaluated the patient. I reviewed the resident's note and discussed the case with the resident. I agree with the resident's findings and plan as documented. SUBJECTIVE: OBJECTIVE: ASSESSMENT AND PLAN:
[2018-11-14] MEDS: SODIUM BICARBONATE PO SCH ×2 (10:38→22:48)
[2018-11-14] MEDS: TACROLIMUS ANHYDROUS 5 MG, TACROLIMUS ANHYDROUS 2 MG PO SCH ×2 (10:40→22:12)
[2018-11-14] MEDS: MYCOPHENOLATE SODIUM 360 MG TABLET.DR PO SCH (10:49)
--- NOTE | 2018-11-14 11:03 | PN ---
Progress Note (short form) - Note Progress Note: Podiatry F/U: Seen/evaluated at bedside. Complaining of vomitting/nausea and ABD pain. Still with temps. Awaiting transfer to ICU. S/p L great toe amputation for dry gangrene POD#1. KOKO: L foot: dressing C/D/I, no active bleeding, mild strikethrough. Sutures coapted , packing in place, no purulent drainage, (+) serous drainage, no soft tissue crepitus, no ischemic changes no signs of acute infection. Minimal tenderness to palpation. WBC: 18.4 OR Cx: pending Imp: 63 year old diabetic, PVD male s/p left great toe amputation POD#1 1. IV abx per infectious disease 2. DSD L foot 3. Partial WB L foot with surgical shoe 4. F/u cultures 5. Will closely follow. Awaiting transfer to ICU. Felicia Riley DPM
--- NOTE | 2018-11-14 11:40 | PN ---
Progress Note, Physician History of Present Illness: Pt seen and examined at bedside. He is awake and alert. He denies shortness of breath. He complains of nausea and had a few episodes of vomiting. He denies dysuria. His renal function is worse today. He agrees for transfer to [facility] which is where he had his kidney transplant. - Current Medication List Current Medications: Active Medications Acetaminophen (Tylenol -) 650 mg PO Q4H PRN PRN Reason: FEVER Last Admin: 11/14/18 04:59 Dose: 650 mg Aspirin (Asa -) 81 mg PO DAILY [facility] Last Admin: 11/14/18 10:36 Dose: 81 mg Chlorhexidine Gluconate (Hibiclens For Decolonization -) 1 applic TP HS [facility] Clopidogrel Bisulfate (Plavix -) 75 mg PO DAILY [facility] Last Admin: 11/14/18 10:34 Dose: 75 mg Ezetimibe (Zetia -) 10 mg PO DAILY [facility] Last Admin: 11/14/18 10:38 Dose: 10 mg Fentanyl (Sublimaze Injection -) 25 mcg IVPUSH Q5M PRN PRN Reason: PAIN-PACU ORDER X 4 DOSES ONLY Furosemide (Lasix -) 40 mg PO DAILY [facility] Last Admin: 11/14/18 10:34 Dose: 40 mg Hydralazine HCl (Apresoline -) 100 mg PO TID [facility] Last Admin: 11/14/18 05:00 Dose: 100 mg Lactated Ringer's (Lactated Ringers Solution) 1,000 mls @ 125 mls/hr IV ASDIR [facility] Last Admin: 11/14/18 01:57 Dose: Not Given Meropenem 1 gm/ Dextrose 100 mls @ 200 mls/hr IVPB Q12H [facility] Last Admin: 11/14/18 10:33 Dose: 200 mls/hr Sodium Chloride (Normal Saline -) 1,000 mls @ 75 mls/hr IV ASDIR [facility] Last Admin: 11/14/18 01:57 Dose: Not Given Sodium Chloride (Normal Saline -) 1,000 mls @ 1,000 mls/hr IV ASDIR STA Stop: 11/14/18 11:36 Last Admin: 11/14/18 10:50 Dose: 1,000 mls/hr Insulin Aspart (Novolog Vial Sliding Scale -) 1 vial SQ [facility]; Protocol Last Admin: 11/14/18 06:18 Dose: 2 units Insulin Detemir (Levemir Vial) 30 units SQ BID@0700,2200 [facility] Last Admin: 11/14/18 06:18 Dose: 30 units Labetalol HCl (Normodyne -) 100 mg PO BID [facility] Last Admin: 11/14/18 10:35 Dose: 100 mg Mupirocin (Bactroban Ointment (For Decolonization) -) 1 applic NS BID [facility] Stop: 11/19/18 09:59 Nifedipine (Procardia Xl -) 60 mg PO BID [facility] Last Admin: 11/14/18 10:37 Dose: 60 mg Ondansetron HCl (Zofran Injection) 4 mg IVPUSH Q6H PRN PRN Reason: NAUSEA AND/OR VOMITING Last Admin: 11/14/18 02:01 Dose: 4 mg Ondansetron HCl (Zofran Injection) 4 mg IVPB Q6H PRN PRN Reason: NAUSEA AND/OR VOMITING Pantoprazole Sodium (Protonix Iv) 40 mg IVPUSH DAILY [facility] Last Admin: 11/14/18 10:37 Dose: 40 mg Prednisone (Deltasone -) 5 mg PO DAILY [facility] Last Admin: 11/14/18 10:34 Dose: 5 mg Sodium Bicarbonate 650 mg/ (Sodium Bicarbonate 325 mg) 975 mg PO BID [facility] Last Admin: 11/14/18 10:38 Dose: 975 mg Tacrolimus 5 mg/ Tacrolimus 2 (mg) 7 mg PO BID [facility] Last Admin: 11/14/18 10:40 Dose: 7 mg Tamsulosin HCl (Flomax -) 0.4 mg PO DAILY@0830 [facility] Last Admin: 11/14/18 08:19 Dose: 0.4 mg - Objective Vital Signs: Vital Signs Temperature 100.9 F H 11/14/18 06:45 Pulse Rate 93 H 11/14/18 06:45 Respiratory Rate 20 11/14/18 06:45 Blood Pressure 132/62 11/14/18 06:45 O2 Sat by Pulse Oximetry (%) 98 11/13/18 21:00 Constitutional: Yes: Calm Eyes: Yes: Conjunctiva Clear HENT: Yes: Atraumatic Neck: Yes: Supple Cardiovascular: Yes: S1, S2 Respiratory: Yes: CTA Bilaterally Gastrointestinal: Yes: Soft Genitourinary: Yes: Other (graft soft and non tender) Musculoskeletal: Yes: WNL Edema: Yes Edema: LLE: 1+ Neurological: Yes: Oriented Psychiatric: Yes: Oriented Labs: CBC, BMP 11/14/18 07:30 11/14/18 07:30 INR, PTT INR 1.14 (0.83-1.09) H 11/13/18 05:57 - ....Imaging Chest X-ray: Report Reviewed Problem List - Problems (1) Kidney transplant recipient Code(s): Z94.0 - KIDNEY TRANSPLANT STATUS (2) CKD (chronic kidney disease) Code(s): N18.9 - CHRONIC KIDNEY DISEASE, UNSPECIFIED (3) Diabetes mellitus Code(s): E11.9 - TYPE 2 DIABETES MELLITUS WITHOUT COMPLICATIONS (4) Fever Code(s): R50.9 - FEVER, UNSPECIFIED (5) Gangrene of left foot Code(s): I96 - GANGRENE, NOT ELSEWHERE CLASSIFIED (6) HTN (hypertension) Code(s): I10 - ESSENTIAL (PRIMARY) HYPERTENSION Assessment/Plan Current Medications Generic Name Dose Route Start Last Admin Trade Name Freq PRN Reason Stop Dose Admin Acetaminophen 650 mg 11/13/18 19:58 11/14/18 04:59 Tylenol - PO 650 mg Q4H PRN Administration FEVER Aspirin 81 mg 11/14/18 10:00 11/14/18 10:36 Asa - PO 81 mg DAILY [facility] Administration Chlorhexidine Gluconate 1 applic 11/14/18 22:00 Hibiclens For Decolonization - TP HS [facility] Clopidogrel Bisulfate 75 mg 11/14/18 10:00 11/14/18 10:34 Plavix - PO 75 mg DAILY [facility] Administration Ezetimibe 10 mg 11/14/18 10:00 11/14/18 10:38 Zetia - PO 10 mg DAILY [facility] Administration Fentanyl 25 mcg 11/13/18 19:25 Sublimaze Injection - IVPUSH Q5M PRN PAIN-PACU ORDER X 4 DOSES ONLY Furosemide 40 mg 11/14/18 10:00 11/14/18 10:34 Lasix - PO 40 mg DAILY [facility] Administration Hydralazine HCl 100 mg 11/13/18 22:00 11/14/18 05:00 Apresoline - PO 100 mg TID [facility] Administration Lactated Ringer's 1,000 mls @ 125 mls/hr 11/13/18 19:30 11/14/18 01:57 Lactated Ringers Solution IV Not Given ASDIR [facility] Meropenem 1 gm/ Dextrose 100 mls @ 200 mls/hr 11/13/18 22:00 11/14/18 10:33 IVPB 200 mls/hr Q12H [facility] Administration Sodium Chloride 1,000 mls @ 75 mls/hr 11/13/18 19:58 11/14/18 01:57 Normal Saline - IV Not Given ASDIR [facility] Insulin Aspart 1 vial 11/13/18 22:00 11/14/18 06:18 Novolog Vial Sliding Scale - SQ 2 units ACHS [facility] Administration Protocol Insulin Detemir 30 units 11/13/18 22:00 11/14/18 06:18 Levemir Vial SQ 30 units BID@0700,2200 [facility] Administration Labetalol HCl 100 mg 11/13/18 22:00 11/14/18 10:35 Normodyne - PO 100 mg BID [facility] Administration Mupirocin 1 applic 11/14/18 10:00 Bactroban Ointment (For Decolonization) - NS 11/19/18 09:59 BID [facility] Nifedipine 60 mg 11/13/18 22:00 11/14/18 10:37 Procardia Xl - PO 60 mg BID [facility] Administration Ondansetron HCl 4 mg 11/13/18 19:25 11/14/18 02:01 Zofran Injection IVPUSH 4 mg Q6H PRN Administration NAUSEA AND/OR VOMITING Ondansetron HCl 4 mg 11/13/18 19:58 Zofran Injection IVPB Q6H PRN NAUSEA AND/OR VOMITING Pantoprazole Sodium 40 mg 11/14/18 10:00 11/14/18 10:37 Protonix Iv IVPUSH 40 mg DAILY [facility] Administration Prednisone 5 mg 11/14/18 10:00 11/14/18 10:34 Deltasone - PO 5 mg DAILY [facility] Administration Sodium Bicarbonate 650 mg/ 975 mg 11/13/18 22:00 11/14/18 10:38 Sodium Bicarbonate 325 mg PO 975 mg BID [facility] Administration Tacrolimus 5 mg/ Tacrolimus 2 7 mg 11/13/18 22:00 11/14/18 10:40 mg PO 7 mg BID [facility] Administration Tamsulosin HCl 0.4 mg 11/14/18 08:30 11/14/18 08:19 Flomax - PO 0.4 mg DAILY@0830 [facility] Administration Impression 1. Kidney transplant 2. HTN 3. pvd 4. left toe gangrene 5. met acidosis 6. DM 7. RISHI 8. sepsis 9. UTI Plan - repeat ua - send lytes - follow prograf level - called transplant center and spoke to Dr Correa, he recommends to hold MMF and initiate transfer to medicine service in [facility] - discussed with ICU team - pt being moved to ICU - saline bolus and monitor response - monitor renal function - cont wound care - cont to follow cultures - pt now on meropenem - discussed with medical team - check urine lytes and public health nutritionist - renal ultrasound reviewed transplant home meds: prograf 7 mg bid prednisone 5 mg mmf 360 mg tab, 2 tabs bid
[2018-11-14 14:33] LABS: BLOOD UREA NITROGEN 49.5 mg/dL (7-18); CALCIUM 8.3 mg/dL (8.5-10.1); CREATININE 3.6 mg/dL (0.55-1.3); POTASSIUM 4.1 mmol/L (3.5-5.1)
[2018-11-14] MEDS: LACTATED RINGERS SOLUTION 1,000 ML IV SCH (14:35)
[2018-11-14] MEDS ORDERED: ONDANSETRON 4 MG/2 ML VIAL IVPB PRN (14:35)
[2018-11-14] MEDS ORDERED: ACETAMINOPHEN 325 MG TABLET (FP) PO PRN (14:35)
[2018-11-14] MEDS ORDERED: SODIUM CHLORIDE 1,000 ML IV SCH (14:35)
[2018-11-14 14:47] LABS: EPI CELLS 6.4 /HPF (0-5/HPF); HYALINE CASTS 20 /lpf (0-8); URINE APPEARANCE CLOUDY; URINE BILIRUBIN 1+ (NEGATIVE); URINE COLOR DK YELLOW; URINE GLUCOSE (UA) TRACE (NEGATIVE); URINE KETONE TRACE (NEGATIVE); URINE LEUK ESTERASE 2+ (NEGATIVE); URINE NITRITE NEGATIVE (NEGATIVE); URINE PROTEIN 1+ (NEGATIVE); URINE RBC 1 /hpf (0-4); URINE WBC 37 /hpf (0-5)
--- NOTE | 2018-11-14 15:00 | EKG ---
Test Reason : Blood Pressure : / mmHG Vent. Rate : 107 BPM Atrial Rate : 107 BPM P-R Int : 128 ms QRS Dur : 088 ms QT Int : 358 ms P-R-T Axes : 085 103 133 degrees QTc Int : 477 ms SINUS TACHYCARDIA WITH OCCASIONAL PREMATURE VENTRICULAR COMPLEXES RIGHTWARD AXIS PULMONARY DISEASE PATTERN SEPTAL INFARCT (CITED ON OR BEFORE 13-NOV-2018) ABNORMAL ECG WHEN COMPARED WITH ECG OF 13-NOV-2018 12:21, PREMATURE VENTRICULAR COMPLEXES ARE NOW PRESENT Confirmed by TARA LOPES MD ([id number]) on 11/14/2018 3:00:20 PM Referred By: MOISES TORIBIO DR Confirmed By:TARA LOPES MD
[2018-11-14 15:03] LABS: URINE BACTERIA 4.9 /hpf (NEGATIVE)
--- NOTE | 2018-11-14 15:07 | PN ---
Teaching Attending Note Name of Resident: Leo Reilly ATTENDING PHYSICIAN STATEMENT I saw and evaluated the patient. I reviewed the resident's note and discussed the case with the resident. I agree with the resident's findings and plan as documented. SUBJECTIVE: Patient seen and examined in the ICU. In brief. 63 M, hypertension, diabetes, and renal transplant in 2016 ([facility]). Admitted via the ER for further management of an infection of his Left great toe with accompanying fevers, chills, and diarrhea. Of note, he was recently started on hyperbaric O2 treatment last week. POD #1: Left great toe amputation. Called to asseess due to fever to 100.9, tachycardia, and bleeding at the site of surgery. Noted to have an acute rise in his creatinine. He does report nausea and vomiting today. No CP or SOB. Intake & Output 11/11/18 11/12/18 11/13/18 11/14/18 23:59 23:59 23:59 23:59 Intake Total 2200 100 Output Total 0 Balance 2200 100 Weight 207 lb Last Vital Signs Temp Pulse Resp BP Pulse Ox 98.8 F 94 H 20 122/61 98 11/14/18 14:51 11/14/18 14:51 11/14/18 14:51 11/14/18 14:51 11/14/18 09:00 Active Medications Acetaminophen (Tylenol -) 650 mg PO Q4H PRN PRN Reason: FEVER Aspirin (Asa -) 81 mg PO DAILY [facility] Clopidogrel Bisulfate (Plavix -) 75 mg PO DAILY [facility] Ezetimibe (Zetia -) 10 mg PO DAILY [facility] Furosemide (Lasix -) 40 mg PO DAILY [facility] Hydralazine HCl (Apresoline -) 100 mg PO TID [facility] Lactated Ringer's (Lactated Ringers Solution) 1,000 mls @ 125 mls/hr IV ASDIR [facility] Meropenem 1 gm/ Dextrose 100 mls @ 200 mls/hr IVPB Q12H [facility] Sodium Chloride (Normal Saline -) 1,000 mls @ 75 mls/hr IV ASDIR [facility] Insulin Aspart (Novolog Vial Sliding Scale -) 1 vial SQ ACHS [facility]; Protocol Insulin Detemir (Levemir Vial) 30 units SQ BID@0700,2200 [facility] Labetalol HCl (Normodyne -) 100 mg PO BID [facility] Nifedipine (Procardia Xl -) 60 mg PO BID [facility] Ondansetron HCl (Zofran Injection) 4 mg IVPB Q6H PRN PRN Reason: NAUSEA AND/OR VOMITING Pantoprazole Sodium (Protonix Iv) 40 mg IVPUSH DAILY [facility] Prednisone (Deltasone -) 5 mg PO DAILY [facility] Sodium Bicarbonate 650 mg/ (Sodium Bicarbonate 325 mg) 975 mg PO BID [facility] Tacrolimus 5 mg/ Tacrolimus 2 (mg) 7 mg PO BID [facility] Tamsulosin HCl (Flomax -) 0.4 mg PO DAILY@0830 [facility] GENERAL: A&Ox3, no acute distress EYES: PERRLA, EOMI ENT: Dry mucus membranes NECK: Mild JVD noted LUNGS: mild rhonchi noted at the bases HEART: tachycardic, soft systolic murmur auscultated on exam ABDOMEN: Soft, nontender, BS present EXTREMITIES: 2+ pulses, no edema noted, s/p L great toe amputation, no visible blood on fresh dressing NEUROLOGICAL: Non-focal Laboratory Results - last 24 hr 11/13/18 11/13/18 11/13/18 05:57 06:00 11:24 WBC RBC Hgb Hct MCV MCH MCHC RDW Plt Count MPV Neutrophils % (Manual) 90.3 H Band Neutrophils % 2.6 Lymphocytes % (Manual) 0.0 L Monocytes % (Manual) 7 D Eosinophils % (Manual) 0.0 Basophils % (Manual) 0.0 Myelocytes % (Man) 0 Promyelocytes % (Man) 0 Blast Cells % (Manual) 0 Metamyelocytes 0 Hypochromia 0 Platelet Estimate Normal Polychromasia 0 Poikilocytosis 0 Anisocytosis 0 Microcytosis 0 Macrocytosis 0 Sodium Potassium Chloride Carbon Dioxide Anion Gap BUN Creatinine Est GFR (CKD-EPI)AfAm Est GFR (CKD-EPI)NonAf POC Glucometer 275 Random Glucose Hemoglobin A1c % 8.3 H Calcium Total Bilirubin AST ALT Alkaline Phosphatase Creatine Kinase Creatine Kinase Index CK-MB (CK-2) Troponin I Total Protein Albumin 11/13/18 11/13/18 11/13/18 12:14 19:26 21:58 WBC RBC Hgb Hct MCV MCH MCHC RDW Plt Count MPV Neutrophils % (Manual) Band Neutrophils % Lymphocytes % (Manual) Monocytes % (Manual) Eosinophils % (Manual) Basophils % (Manual) Myelocytes % (Man) Promyelocytes % (Man) Blast Cells % (Manual) Metamyelocytes Hypochromia Platelet Estimate Polychromasia Poikilocytosis Anisocytosis Microcytosis Macrocytosis Sodium Potassium Chloride Carbon Dioxide Anion Gap BUN Creatinine Est GFR (CKD-EPI)AfAm Est GFR (CKD-EPI)NonAf POC Glucometer 283 319 Random Glucose Hemoglobin A1c % Calcium Total Bilirubin AST ALT Alkaline Phosphatase Creatine Kinase 199 Creatine Kinase Index 1.8 CK-MB (CK-2) 3.6 Troponin I 0.11 H Total Protein Albumin 11/14/18 11/14/18 11/14/18 06:17 07:30 07:30 WBC 18.4 H RBC 3.00 L Hgb 8.9 L Hct 27.2 L MCV 90.7 MCH 29.6 MCHC 32.6 RDW 15.4 Plt Count 281 MPV 9.6 Neutrophils % (Manual) Band Neutrophils % Lymphocytes % (Manual) Monocytes % (Manual) Eosinophils % (Manual) Basophils % (Manual) Myelocytes % (Man) Promyelocytes % (Man) Blast Cells % (Manual) Metamyelocytes Hypochromia Platelet Estimate Polychromasia Poikilocytosis Anisocytosis Microcytosis Macrocytosis Sodium 137 Potassium 3.9 Chloride 104 Carbon Dioxide 21 Anion Gap 12 BUN 47.5 H Creatinine 3.6 H Est GFR (CKD-EPI)AfAm 19.51 Est GFR (CKD-EPI)NonAf 16.83 POC Glucometer 236 Random Glucose 235 H Hemoglobin A1c % Calcium 8.2 L Total Bilirubin 0.9 AST 17 ALT 25 Alkaline Phosphatase 137 H Creatine Kinase Creatine Kinase Index CK-MB (CK-2) Troponin I Total Protein 5.8 L Albumin 2.1 L ASSESSMENT/PLAN: R/O Sepsis due to a soft tissue infection POD #1 Left great toe amputation Hypertension Diabetes History of renal transplant in 2016 ([facility]) RISHI Broad spectrum ABX per ID O2 as noted Local wound care per surgery Follow cultures Patient to be transferred under the care of her transplant desk operator Dr Booker
[2018-11-14] MEDS ORDERED: PT OWN MED DRAWER 7, Y5N ONE ×2 (15:21→21:39)
[2018-11-14] MEDS ORDERED: CHLORHEXIDINE GLUCONATE 4% CLEANSER FOR DECOLONIZATION TP SCH (22:00)
[2018-11-15] MEDS: INSULIN SLIDING SCALE (NOVOLOG) 1 VIAL SQ SCH ×3 (06:28→18:07)
[2018-11-15] MEDS: INSULIN (LEVEMIR) 100 UNITS/ML UNITS SQ SCH (06:28)
[2018-11-15] MEDS: hydrALAZINE HCL 50 MG TABLET (FP) PO SCH ×2 (06:28→14:10)
[2018-11-15] MEDS ORDERED: TAMSULOSIN HCL 0.4 MG CAP PO SCH (08:30)
[2018-11-15 08:34] LABS: HEMATOCRIT 26.1 % (35.4-49); HEMOGLOBIN 8.4 GM/dL (11.7-16.9); MCH 29.4 pg (25.7-33.7); MCHC 32.2 g/dl (32.0-35.9); MEAN CELL VOLUME 91.2 fl (80-96); MEAN PLT VOLUME 9.8 fl (7.5-11.1); PLATELET COUNT 294 K/MM3 (134-434); RBC 2.86 M/mm3 (4.00-5.60); RDW 15.8 % (11.9-15.9); WHITE BLOOD COUNT 17.8 K/mm3 (4.0-10.0)
[2018-11-15 09:02] LABS: BLOOD UREA NITROGEN 55.5 mg/dL (7-18); CALCIUM 8.3 mg/dL (8.5-10.1); CREATININE 4.1 mg/dL (0.55-1.3); POTASSIUM 4.5 mmol/L (3.5-5.1)
[2018-11-15] MEDS ORDERED: MEROPENEM 1 GM VIAL (RESTRICTED TO ID) IVPB ONE (09:31)
[2018-11-15] MEDS ORDERED: DEXTROSE 5%-WATER 100 ML IVPB ONE (09:31)
[2018-11-15] MEDS: MEROPENEM 1 GM in DEXTROSE 5%-WATER 100 ML IVPB SCH (09:35)
[2018-11-15] MEDS: LABETALOL HCL 100 MG TABLET (FP) PO SCH (09:35)
[2018-11-15] MEDS: NIFEdipine E.R 60 MG TABLET (UD) PO SCH (09:36)
[2018-11-15] MEDS ORDERED: PT OWN MED DRAWER 7, Y5N ONE (09:39)
[2018-11-15] MEDS: TACROLIMUS ANHYDROUS 5 MG, TACROLIMUS ANHYDROUS 2 MG PO SCH (09:40)
[2018-11-15] MEDS: SODIUM BICARBONATE PO SCH (09:41)
[2018-11-15] MEDS ORDERED: CLOPIDOGREL BISULFATE 75 MG TABLET (FP) PO SCH (10:00)
[2018-11-15] MEDS ORDERED: PANTOPRAZOLE SODIUM 40 MG VIAL IVPUSH SCH (10:00)
[2018-11-15] MEDS ORDERED: predniSONE 5 MG TABLET (UD) PO SCH (10:00)
[2018-11-15] MEDS ORDERED: FUROSEMIDE 40 MG TABLET (FP) PO SCH (10:00)
[2018-11-15] MEDS ORDERED: ASPIRIN 81 MG CHEWABLE TABLETS PO SCH (10:00)
[2018-11-15] MEDS ORDERED: EZETIMIBE 10 MG TABLET (FP) PO SCH (10:00)
--- NOTE | 2018-11-15 10:22 | PN ---
Progress Note, Physician Chief Complaint: AWAKE ALERT DENIES CP/SOB COMFORTABLE - Current Medication List Current Medications: Active Medications Acetaminophen (Tylenol -) 650 mg PO Q4H PRN PRN Reason: FEVER Last Admin: 11/15/18 01:30 Dose: 650 mg Aspirin (Asa -) 81 mg PO DAILY [facility] Last Admin: 11/15/18 09:33 Dose: 81 mg Clopidogrel Bisulfate (Plavix -) 75 mg PO DAILY [facility] Last Admin: 11/15/18 09:34 Dose: 75 mg Ezetimibe (Zetia -) 10 mg PO DAILY [facility] Last Admin: 11/15/18 09:37 Dose: 10 mg Furosemide (Lasix -) 40 mg PO DAILY [facility] Last Admin: 11/15/18 09:37 Dose: 40 mg Hydralazine HCl (Apresoline -) 100 mg PO TID [facility] Last Admin: 11/15/18 06:28 Dose: 100 mg Lactated Ringer's (Lactated Ringers Solution) 1,000 mls @ 125 mls/hr IV ASDIR [facility] Last Admin: 11/14/18 14:35 Dose: Not Given Meropenem 1 gm/ Dextrose 100 mls @ 200 mls/hr IVPB Q12H [facility] Last Admin: 11/15/18 09:35 Dose: 200 mls/hr Sodium Chloride (Normal Saline -) 1,000 mls @ 75 mls/hr IV ASDIR [facility] Last Admin: 11/14/18 22:15 Dose: 75 mls/hr Insulin Aspart (Novolog Vial Sliding Scale -) 1 vial SQ ACHS [facility]; Protocol Last Admin: 11/15/18 06:28 Dose: 4 units Insulin Detemir (Levemir Vial) 30 units SQ BID@0700,2200 [facility] Last Admin: 11/15/18 06:28 Dose: 30 units Labetalol HCl (Normodyne -) 100 mg PO BID [facility] Last Admin: 11/15/18 09:35 Dose: 100 mg Nifedipine (Procardia Xl -) 60 mg PO BID [facility] Last Admin: 11/15/18 09:36 Dose: 60 mg Ondansetron HCl (Zofran Injection) 4 mg IVPB Q6H PRN PRN Reason: NAUSEA AND/OR VOMITING Pantoprazole Sodium (Protonix Iv) 40 mg IVPUSH DAILY [facility] Last Admin: 11/15/18 09:34 Dose: 40 mg Prednisone (Deltasone -) 5 mg PO DAILY [facility] Last Admin: 11/15/18 09:40 Dose: 5 mg Sodium Bicarbonate 650 mg/ (Sodium Bicarbonate 325 mg) 975 mg PO BID [facility] Last Admin: 11/15/18 09:41 Dose: 975 mg Tacrolimus 5 mg/ Tacrolimus 2 (mg) 7 mg PO BID [facility] Last Admin: 11/15/18 09:40 Dose: 7 mg Tamsulosin HCl (Flomax -) 0.4 mg PO DAILY@0830 [facility] Last Admin: 11/15/18 09:25 Dose: 0.4 mg - Objective Vital Signs: Vital Signs Temperature 98.9 F 11/15/18 06:00 Pulse Rate 91 H 11/15/18 08:00 Respiratory Rate 21 H 11/15/18 08:00 Blood Pressure 131/58 L 11/15/18 08:00 O2 Sat by Pulse Oximetry (%) 96 11/15/18 06:00 Constitutional: Yes: Calm Eyes: Yes: WNL HENT: Yes: WNL Neck: Yes: WNL Cardiovascular: Yes: WNL Respiratory: Yes: WNL Gastrointestinal: Yes: WNL Genitourinary: Yes: Other Extremities: Yes: Amputation Edema: Yes Wound/Incision: Yes: Draining (LEFT TOE), Reddened, Bleeding ...Motor Strength: LLE Psychiatric: Yes: WNL Labs: CBC, BMP 11/15/18 07:51 11/15/18 07:51 INR, PTT INR 1.14 (0.83-1.09) H 11/13/18 05:57 Problem List - Problems (1) CKD (chronic kidney disease) Code(s): N18.9 - CHRONIC KIDNEY DISEASE, UNSPECIFIED (2) Diabetes mellitus Code(s): E11.9 - TYPE 2 DIABETES MELLITUS WITHOUT COMPLICATIONS (3) Fever Code(s): R50.9 - FEVER, UNSPECIFIED (4) Gangrene of left foot Code(s): I96 - GANGRENE, NOT ELSEWHERE CLASSIFIED (5) HTN (hypertension) Code(s): I10 - ESSENTIAL (PRIMARY) HYPERTENSION (6) Kidney transplant recipient Code(s): Z94.0 - KIDNEY TRANSPLANT STATUS (7) Tachycardia Code(s): R00.0 - TACHYCARDIA, UNSPECIFIED Assessment/Plan IV ABX PER ID LABS REVIEWED RENAL FUNCTION WORSENING ICU/NEPHROLOGY EVALS APPRECIATED WOUND CARE LEFT TOE AMPUTATION SITE DVT PROPHYLAXIS TRANSFERRING TO TRANSPLANT CENTER FOR CLOSE RENAL F/U WOUND CARE R/O SEPSIS
--- NOTE | 2018-11-15 11:04 | PN ---
Progress Note (short form) - Note Progress Note: Podiatry F/U: Seen/evaluated at bedside. States today feeling better. per patient was supposed to be transferred back to [facility] yesterday but was never sent due to no beds being available. per nurse supposed to be transferred back down to [facility] later today. States foot is feeling better. KOKO: L foot: dressing C/D/I, no active bleeding, mild strikethrough. , flap is dusky with gross maceration, cool to touch, no purulence, no malodor, erythema decreasing, no streaking noted, WBC: decreasing OR Cx: pending Imp: 63 year old diabetic, PVD male s/p left great toe amputation POD#2 Evaluated and reviewed per nurse for transfer today to [facility] i reached out to Pod at [facility] to make aware; may need secondary flush if WBC does not keep continuing to fall Also questionable viablity of flap as well as whole forefoot given diffuse infection that patient had Will need to be monitored closely upon transfer At this time though is stable If patient is not transferred tomorrow would likely benefit from a second flush and drainage of the area will fu in morning if patient has not been transferred Trend labs F/u culture.
--- NOTE | 2018-11-15 11:48 | PN ---
Teaching Attending Note Name of Resident: Parvin Mo ATTENDING PHYSICIAN STATEMENT I saw and evaluated the patient. I reviewed the resident's note and discussed the case with the resident. I agree with the resident's findings and plan as documented. SUBJECTIVE: Patient seen and examined in the ICU. Feels overall better. No CP or SOB. No discomfort in his foot. D/W Podiatry, Surgical site appears dusky and cool. He has reached out to a [employer]ular [employer]ips[employer] Operator at [facility] for follow up when the patient is transferred. Intake & Output 11/12/18 11/13/18 11/14/18 11/15/18 23:59 23:59 23:59 23:59 Intake Total 2200 700 1020 Output Total 0 200 Balance 2200 500 1020 Weight 207 lb Last Vital Signs Temp Pulse Resp BP Pulse Ox 98.1 F 95 H 20 135/70 95 11/15/18 10:00 11/15/18 10:00 11/15/18 10:00 11/15/18 10:00 11/15/18 09:00 Active Medications Acetaminophen (Tylenol -) 650 mg PO Q4H PRN PRN Reason: FEVER Last Admin: 11/15/18 01:30 Dose: 650 mg Aspirin (Asa -) 81 mg PO DAILY [facility] Last Admin: 11/15/18 09:33 Dose: 81 mg Clopidogrel Bisulfate (Plavix -) 75 mg PO DAILY [facility] Last Admin: 11/15/18 09:34 Dose: 75 mg Ezetimibe (Zetia -) 10 mg PO DAILY [facility] Last Admin: 11/15/18 09:37 Dose: 10 mg Furosemide (Lasix -) 40 mg PO DAILY [facility] Last Admin: 11/15/18 09:37 Dose: 40 mg Hydralazine HCl (Apresoline -) 100 mg PO TID [facility] Last Admin: 11/15/18 06:28 Dose: 100 mg Lactated Ringer's (Lactated Ringers Solution) 1,000 mls @ 125 mls/hr IV ASDIR [facility] Last Admin: 11/14/18 14:35 Dose: Not Given Meropenem 1 gm/ Dextrose 100 mls @ 200 mls/hr IVPB Q12H [facility] Last Admin: 11/15/18 09:35 Dose: 200 mls/hr Sodium Chloride (Normal Saline -) 1,000 mls @ 75 mls/hr IV ASDIR [facility] Last Admin: 11/14/18 22:15 Dose: 75 mls/hr Insulin Aspart (Novolog Vial Sliding Scale -) 1 vial SQ ACHS [facility]; Protocol Last Admin: 11/15/18 06:28 Dose: 4 units Insulin Detemir (Levemir Vial) 30 units SQ BID@0700,2200 [facility] Last Admin: 11/15/18 06:28 Dose: 30 units Labetalol HCl (Normodyne -) 100 mg PO BID [facility] Last Admin: 11/15/18 09:35 Dose: 100 mg Nifedipine (Procardia Xl -) 60 mg PO BID [facility] Last Admin: 11/15/18 09:36 Dose: 60 mg Ondansetron HCl (Zofran Injection) 4 mg IVPB Q6H PRN PRN Reason: NAUSEA AND/OR VOMITING Pantoprazole Sodium (Protonix Iv) 40 mg IVPUSH DAILY [facility] Last Admin: 11/15/18 09:34 Dose: 40 mg Prednisone (Deltasone -) 5 mg PO DAILY [facility] Last Admin: 11/15/18 09:40 Dose: 5 mg Sodium Bicarbonate 650 mg/ (Sodium Bicarbonate 325 mg) 975 mg PO BID [facility] Last Admin: 11/15/18 09:41 Dose: 975 mg Tacrolimus 5 mg/ Tacrolimus 2 (mg) 7 mg PO BID [facility] Last Admin: 11/15/18 09:40 Dose: 7 mg Tamsulosin HCl (Flomax -) 0.4 mg PO DAILY@0830 [facility] Last Admin: 11/15/18 09:25 Dose: 0.4 mg GENERAL: A&Ox3, no acute distress EYES: PERRLA, EOMI ENT: Dry mucus membranes NECK: Mild JVD noted LUNGS: mild rhonchi noted at the bases HEART: tachycardic, soft systolic murmur auscultated on exam ABDOMEN: Soft, nontender, BS present EXTREMITIES: 2+ pulses, no edema noted, s/p L great toe amputation, no visible blood on fresh dressing NEUROLOGICAL: Non-focal ASSESSMENT/PLAN: Resolving Sepsis due to a soft tissue infection Flap failure of the left foot POD #2 Left great toe amputation Hypertension Diabetes History of renal transplant in 2016 ([facility]) RISHI Broad spectrum ABX per ID O2 as noted Local wound care per Podiatry. A report has been given to a [employer]ular [employer] Operator at [facility] for follow up. Patient to be transferred under the care of her transplant public housing manager Dr Booker
--- NOTE | 2018-11-15 12:23 | PN ---
Progress Note (short form) - Note Progress Note: Anesthesia POD#1 S/P left big toe amputation under TIVA Patient is moved to the ICU after having fever and tachycardia. No complications in relation to anesthesia noticed. Shannon Craig MD
--- NOTE | 2018-11-15 12:49 | DS ---
Physical Exam: SUBJECTIVE: Patient seen and examined. No acute events overnight. Denies any complaints this morning. OBJECTIVE: Vital Signs Period Temp Pulse Resp BP Sys/Moseley Pulse Ox Last 24 Hr 98.1 F-100.4 F 45-95 17-24 103-136/56-77 86-96 PHYSICAL EXAM GENERAL: The patient is awake, alert, and fully oriented, in no acute distress. HEAD: Normal with no signs of trauma. EYES: Extraocular movements intact, sclera anicteric, conjunctiva clear. ENT: Ears normal, nares patent, oropharynx clear without exudates, moist mucous membranes. NECK: Trachea midline, full range of motion, supple. LUNGS: Breath sounds equal, clear to auscultation bilaterally, no wheezes, no crackles, no accessory muscle use. HEART: Regular rate and rhythm, S1, S2 without murmur ABDOMEN: Soft, nontender, nondistended, normoactive bowel sounds, no guarding, no rebound EXTREMITIES: 2+ dorsal pedal pulses, warm, well-perfused, no edema, increasing drainage from surgical site. NEUROLOGICAL: Normal speech, gait not observed. PSYCH: Normal mood, normal affect. SKIN: Warm, dry, normal turgor LABS Laboratory Results - last 24 hr 11/14/18 11/14/18 11/14/18 13:15 13:15 13:15 WBC RBC Hgb Hct MCV MCH MCHC RDW Plt Count MPV Sodium Potassium Chloride Carbon Dioxide Anion Gap BUN Creatinine Est GFR (CKD-EPI)AfAm Est GFR (CKD-EPI)NonAf POC Glucometer Random Glucose Calcium Urine Color Urine Appearance Urine pH Ur Specific [place] Urine Protein Urine Glucose (UA) Urine Ketones Urine Blood Urine Nitrite Urine Bilirubin Urine Urobilinogen Ur Leukocyte Esterase Urine WBC (Auto) Urine RBC (Auto) Urine Casts (Auto) U Pathogenic Cast Auto U Epithel Cells (Auto) U Sm Round Cell (Auto) Urine Bacteria (Auto) Ur Random Creatinine 250.0 H Ur Random Sodium Cancelled 20 L Ur Random Potassium Cancelled 37.0 Ur Random Chloride Cancelled 15 L Random Vancomycin 11/14/18 11/14/18 11/14/18 13:15 13:15 13:55 WBC RBC Hgb Hct MCV MCH MCHC RDW Plt Count MPV Sodium 135 L Potassium 4.1 Chloride 104 Carbon Dioxide 20 L Anion Gap 11 BUN 49.5 H Creatinine 3.6 H Est GFR (CKD-EPI)AfAm 19.51 Est GFR (CKD-EPI)NonAf 16.83 POC Glucometer Random Glucose 152 H Calcium 8.3 L Urine Color Dk yellow Urine Appearance Cloudy Urine pH 5.0 Ur Specific [place] 1.025 Urine Protein 1+ H Urine Glucose (UA) Trace Urine Ketones Trace H Urine Blood Negative Urine Nitrite Negative Urine Bilirubin 1+ H Urine Urobilinogen 1.0 Ur Leukocyte Esterase 2+ H Urine WBC (Auto) 37 Urine RBC (Auto) 1 Urine Casts (Auto) 20 U Pathogenic Cast Auto None seen U Epithel Cells (Auto) 6.4 U Sm Round Cell (Auto) None seen Urine Bacteria (Auto) 4.9 Ur Random Creatinine 245.0 H Ur Random Sodium Ur Random Potassium Ur Random Chloride Random Vancomycin 11/14/18 11/14/18 11/15/18 17:29 21:34 05:40 WBC RBC Hgb Hct MCV MCH MCHC RDW Plt Count MPV Sodium Potassium Chloride Carbon Dioxide Anion Gap BUN Creatinine Est GFR (CKD-EPI)AfAm Est GFR (CKD-EPI)NonAf POC Glucometer 185 245 Random Glucose Calcium Urine Color Urine Appearance Urine pH Ur Specific [place] Urine Protein Urine Glucose (UA) Urine Ketones Urine Blood Urine Nitrite Urine Bilirubin Urine Urobilinogen Ur Leukocyte Esterase Urine WBC (Auto) Urine RBC (Auto) Urine Casts (Auto) U Pathogenic Cast Auto U Epithel Cells (Auto) U Sm Round Cell (Auto) Urine Bacteria (Auto) Ur Random Creatinine Ur Random Sodium Ur Random Potassium Ur Random Chloride Random Vancomycin 13.2 L 11/15/18 11/15/18 11/15/18 06:20 07:51 07:51 WBC 17.8 H RBC 2.86 L Hgb 8.4 L Hct 26.1 L MCV 91.2 MCH 29.4 MCHC 32.2 RDW 15.8 Plt Count 294 MPV 9.8 Sodium 135 L Potassium 4.5 Chloride 102 Carbon Dioxide 21 Anion Gap 12 BUN 55.5 H Creatinine 4.1 H Est GFR (CKD-EPI)AfAm 16.67 Est GFR (CKD-EPI)NonAf 14.38 POC Glucometer 265 Random Glucose 279 H Calcium 8.3 L Urine Color Urine Appearance Urine pH Ur Specific [place] Urine Protein Urine Glucose (UA) Urine Ketones Urine Blood Urine Nitrite Urine Bilirubin Urine Urobilinogen Ur Leukocyte Esterase Urine WBC (Auto) Urine RBC (Auto) Urine Casts (Auto) U Pathogenic Cast Auto U Epithel Cells (Auto) U Sm Round Cell (Auto) Urine Bacteria (Auto) Ur Random Creatinine Ur Random Sodium Ur Random Potassium Ur Random Chloride Random Vancomycin 11/15/18 11:55 WBC RBC Hgb Hct MCV MCH MCHC RDW Plt Count MPV Sodium Potassium Chloride Carbon Dioxide Anion Gap BUN Creatinine Est GFR (CKD-EPI)AfAm Est GFR (CKD-EPI)NonAf POC Glucometer 259 Random Glucose Calcium Urine Color Urine Appearance Urine pH Ur Specific [place] Urine Protein Urine Glucose (UA) Urine Ketones Urine Blood Urine Nitrite Urine Bilirubin Urine Urobilinogen Ur Leukocyte Esterase Urine WBC (Auto) Urine RBC (Auto) Urine Casts (Auto) U Pathogenic Cast Auto U Epithel Cells (Auto) U Sm Round Cell (Auto) Urine Bacteria (Auto) Ur Random Creatinine Ur Random Sodium Ur Random Potassium Ur Random Chloride Random Vancomycin Current Medications Acetaminophen (Tylenol -) 650 mg PO Q4H PRN PRN Reason: FEVER Last Admin: 11/15/18 01:30 Dose: 650 mg Aspirin (Asa -) 81 mg PO DAILY [facility] Last Admin: 11/15/18 09:33 Dose: 81 mg Clopidogrel Bisulfate (Plavix -) 75 mg PO DAILY [facility] Last Admin: 11/15/18 09:34 Dose: 75 mg Ezetimibe (Zetia -) 10 mg PO DAILY [facility] Last Admin: 11/15/18 09:37 Dose: 10 mg Furosemide (Lasix -) 40 mg PO DAILY [facility] Last Admin: 11/15/18 09:37 Dose: 40 mg Hydralazine HCl (Apresoline -) 100 mg PO TID [facility] Last Admin: 11/15/18 06:28 Dose: 100 mg Lactated Ringer's (Lactated Ringers Solution) 1,000 mls @ 125 mls/hr IV ASDIR [facility] Last Admin: 11/14/18 14:35 Dose: Not Given Meropenem 1 gm/ Dextrose 100 mls @ 200 mls/hr IVPB Q12H [facility] Last Admin: 11/15/18 09:35 Dose: 200 mls/hr Sodium Chloride (Normal Saline -) 1,000 mls @ 100 mls/hr IV ASDIR [facility] Insulin Aspart (Novolog Vial Sliding Scale -) 1 vial SQ ACHS [facility]; Protocol Last Admin: 11/15/18 11:58 Dose: 4 units Insulin Detemir (Levemir Vial) 30 units SQ BID@0700,2200 [facility] Last Admin: 11/15/18 06:28 Dose: 30 units Labetalol HCl (Normodyne -) 100 mg PO BID [facility] Last Admin: 11/15/18 09:35 Dose: 100 mg Nifedipine (Procardia Xl -) 60 mg PO BID [facility] Last Admin: 11/15/18 09:36 Dose: 60 mg Ondansetron HCl (Zofran Injection) 4 mg IVPB Q6H PRN PRN Reason: NAUSEA AND/OR VOMITING Pantoprazole Sodium (Protonix Iv) 40 mg IVPUSH DAILY [facility] Last Admin: 11/15/18 09:34 Dose: 40 mg Prednisone (Deltasone -) 5 mg PO DAILY [facility] Last Admin: 11/15/18 09:40 Dose: 5 mg Sodium Bicarbonate 650 mg/ (Sodium Bicarbonate 325 mg) 975 mg PO BID [facility] Last Admin: 11/15/18 09:41 Dose: 975 mg Tacrolimus 5 mg/ Tacrolimus 2 (mg) 7 mg PO BID [facility] Last Admin: 11/15/18 09:40 Dose: 7 mg Tamsulosin HCl (Flomax -) 0.4 mg PO DAILY@0830 [facility] Last Admin: 11/15/18 09:25 Dose: 0.4 mg Home Medications Medication Instructions Recorded Aspirin [ASA -] 81 mg PO DAILY 11/03/16 Hydralazine HCl 100 mg PO TID 11/03/16 Insulin (Levemir) [Levemir Flexpen 30 units SQ BID 11/03/16 -] Labetalol HCl 300 mg PO BID 11/03/16 Nifedipine [Nifedipine ER] 60 mg PO BID 11/03/16 Tacrolimus [Prograf] 10 mg PO BID 11/03/16 Sodium Bicarbonate 975 mg PO BID 10/08/18 Ezetimibe [Zetia -] 10 mg PO DAILY 10/31/18 Furosemide [Lasix -] 40 mg PO DAILY PRN 10/31/18 Mycophenolate Sodium [Mycophenolic 360 mg PO BID 10/31/18 Acid] Prednisone 5 mg PO DAILY 10/31/18 Tamsulosin HCl 0.4 mg PO DAILY 10/31/18 Clopidogrel Bisulfate [Plavix] 75 mg PO DAILY #30 tablet 11/01/18 HOSPITAL COURSE: Date of Admission:11/12/18 Date of Discharge: 11/15/18 Resolving Sepsis due to a soft tissue infection Flap failure of the left foot POD #2 Left great toe amputation Hypertension Diabetes History of renal transplant in 2016 ([facility]) RISHI Pt. admitted for amputation of gangrenous L. great toe. POD#1 Pt. found to have fever to 100.9. Pt.'s Abx. switched to Meropenem from Zosyn. Continue with Vancomycin. Pt. has hx. of ESBL UTI. Pt. has developed Acute Renal Failure while hospitalized with increasing Creatinine now 4.1. Continue with IVF Local wound care per Podiatry. A report has been given to a Calender Let Off Helper at [facility] for follow up. Patient to be transferred under the care of her transplant graphic user interface designer. Discharge Summary Reason For Visit: GANGRENE Current Active Problems CKD (chronic kidney disease) (Acute) Diabetes mellitus (Acute) Fever (Acute) Gangrene of left foot (Acute) HTN (hypertension) (Acute) Kidney transplant recipient (Acute) Systemic inflammatory response syndrome (SIRS) (Acute) Tachycardia (Acute) Condition: Fair - Instructions - Home Medications Comprehensive Discharge Medication List: Ambulatory Orders Aspirin [ASA -] 81 mg PO DAILY 11/03/16 Hydralazine HCl 100 mg PO TID 11/03/16 Insulin (Levemir) [Levemir Flexpen -] 30 units SQ BID 11/03/16 Labetalol HCl 300 mg PO BID 11/03/16 Nifedipine [Nifedipine ER] 60 mg PO BID 11/03/16 Tacrolimus [Prograf] 10 mg PO BID 11/03/16 Sodium Bicarbonate 975 mg PO BID 10/08/18 Ezetimibe [Zetia -] 10 mg PO DAILY 10/31/18 Furosemide [Lasix -] 40 mg PO DAILY PRN 10/31/18 Mycophenolate Sodium [Mycophenolic Acid] 360 mg PO BID 10/31/18 Prednisone 5 mg PO DAILY 10/31/18 Tamsulosin HCl 0.4 mg PO DAILY 10/31/18 Clopidogrel Bisulfate [Plavix] 75 mg PO DAILY #30 tablet 11/01/18 ATTENDING PHYSICIAN STATEMENT I saw and evaluated the patient. I reviewed the resident's note and discussed the case with the resident. I agree with the resident's findings and plan as documented. SUBJECTIVE: OBJECTIVE: ASSESSMENT AND PLAN:
[2018-11-15] MEDS ORDERED: SODIUM CHLORIDE 1,000 ML IV SCH ×2 (12:50→13:24)
--- NOTE | 2018-11-15 13:28 | PN ---
Progress Note, Physician History of Present Illness: Pt seen and examined at bedside. He is awake and alert. He is making urine. He denies chest pain. He denies dysuria. He does complain of some shortness of breath this morning. - Current Medication List Current Medications: Active Medications Acetaminophen (Tylenol -) 650 mg PO Q4H PRN PRN Reason: FEVER Last Admin: 11/15/18 01:30 Dose: 650 mg Aspirin (Asa -) 81 mg PO DAILY [facility] Last Admin: 11/15/18 09:33 Dose: 81 mg Clopidogrel Bisulfate (Plavix -) 75 mg PO DAILY [facility] Last Admin: 11/15/18 09:34 Dose: 75 mg Ezetimibe (Zetia -) 10 mg PO DAILY [facility] Last Admin: 11/15/18 09:37 Dose: 10 mg Furosemide (Lasix -) 40 mg PO DAILY [facility] Last Admin: 11/15/18 09:37 Dose: 40 mg Hydralazine HCl (Apresoline -) 100 mg PO TID [facility] Last Admin: 11/15/18 06:28 Dose: 100 mg Lactated Ringer's (Lactated Ringers Solution) 1,000 mls @ 125 mls/hr IV ASDIR [facility] Last Admin: 11/14/18 14:35 Dose: Not Given Meropenem 1 gm/ Dextrose 100 mls @ 200 mls/hr IVPB Q12H [facility] Last Admin: 11/15/18 09:35 Dose: 200 mls/hr Sodium Chloride (Normal Saline -) 1,000 mls @ 65 mls/hr IV ASDIR [facility] Insulin Aspart (Novolog Vial Sliding Scale -) 1 vial SQ [facility]; Protocol Last Admin: 11/15/18 11:58 Dose: 4 units Insulin Detemir (Levemir Vial) 30 units SQ BID@0700,2200 [facility] Last Admin: 11/15/18 06:28 Dose: 30 units Labetalol HCl (Normodyne -) 100 mg PO BID [facility] Last Admin: 11/15/18 09:35 Dose: 100 mg Nifedipine (Procardia Xl -) 60 mg PO BID [facility] Last Admin: 11/15/18 09:36 Dose: 60 mg Ondansetron HCl (Zofran Injection) 4 mg IVPB Q6H PRN PRN Reason: NAUSEA AND/OR VOMITING Pantoprazole Sodium (Protonix Iv) 40 mg IVPUSH DAILY [facility] Last Admin: 11/15/18 09:34 Dose: 40 mg Prednisone (Deltasone -) 5 mg PO DAILY [facility] Last Admin: 11/15/18 09:40 Dose: 5 mg Sodium Bicarbonate 650 mg/ (Sodium Bicarbonate 325 mg) 975 mg PO BID [facility] Last Admin: 11/15/18 09:41 Dose: 975 mg Tacrolimus 5 mg/ Tacrolimus 2 (mg) 7 mg PO BID [facility] Last Admin: 11/15/18 09:40 Dose: 7 mg Tamsulosin HCl (Flomax -) 0.4 mg PO DAILY@0830 [facility] Last Admin: 11/15/18 09:25 Dose: 0.4 mg - Objective Vital Signs: Vital Signs Temperature 98.1 F 11/15/18 10:00 Pulse Rate 90 11/15/18 12:00 Respiratory Rate 22 H 11/15/18 12:00 Blood Pressure 130/64 11/15/18 12:00 O2 Sat by Pulse Oximetry (%) 95 11/15/18 09:00 Constitutional: Yes: Calm Eyes: Yes: Conjunctiva Clear HENT: Yes: Atraumatic Cardiovascular: Yes: S1, S2 Respiratory: Yes: CTA Bilaterally Gastrointestinal: Yes: Soft Genitourinary: Yes: WNL, Other (graft soft and non tender) Musculoskeletal: Yes: WNL Extremities: Yes: WNL Edema: Yes Edema: LLE: 1+, RLE: Trace Wound/Incision: Yes: Dressing Dry and Intact Neurological: Yes: Oriented Psychiatric: Yes: Oriented Labs: CBC, BMP 11/15/18 07:51 11/15/18 07:51 INR, PTT INR 1.14 (0.83-1.09) H 11/13/18 05:57 Problem List - Problems (1) Kidney transplant recipient Code(s): Z94.0 - KIDNEY TRANSPLANT STATUS (2) CKD (chronic kidney disease) Code(s): N18.9 - CHRONIC KIDNEY DISEASE, UNSPECIFIED (3) Diabetes mellitus Code(s): E11.9 - TYPE 2 DIABETES MELLITUS WITHOUT COMPLICATIONS (4) Fever Code(s): R50.9 - FEVER, UNSPECIFIED (5) Gangrene of left foot Code(s): I96 - GANGRENE, NOT ELSEWHERE CLASSIFIED (6) HTN (hypertension) Code(s): I10 - ESSENTIAL (PRIMARY) HYPERTENSION Assessment/Plan Current Medications Generic Name Dose Route Start Last Admin Trade Name Shelbie PRN Reason Stop Dose Admin Acetaminophen 650 mg 11/14/18 14:35 11/15/18 01:30 Tylenol - PO 650 mg Q4H PRN Administration FEVER Aspirin 81 mg 11/15/18 10:00 11/15/18 09:33 Asa - PO 81 mg DAILY [facility] Administration Clopidogrel Bisulfate 75 mg 11/15/18 10:00 11/15/18 09:34 Plavix - PO 75 mg DAILY [facility] Administration Ezetimibe 10 mg 11/15/18 10:00 11/15/18 09:37 Zetia - PO 10 mg DAILY [facility] Administration Furosemide 40 mg 11/15/18 10:00 11/15/18 09:37 Lasix - PO 40 mg DAILY [facility] Administration Hydralazine HCl 100 mg 11/14/18 22:00 11/15/18 06:28 Apresoline - PO 100 mg TID [facility] Administration Lactated Ringer's 1,000 mls @ 125 mls/hr 11/14/18 14:35 11/14/18 14:35 Lactated Ringers Solution IV Not Given ASDIR [facility] Meropenem 1 gm/ Dextrose 100 mls @ 200 mls/hr 11/14/18 22:00 11/15/18 09:35 IVPB 200 mls/hr Q12H [facility] Administration Sodium Chloride 1,000 mls @ 65 mls/hr 11/15/18 13:24 Normal Saline - IV ASDIR [facility] Insulin Aspart 1 vial 11/14/18 16:30 11/15/18 11:58 Novolog Vial Sliding Scale - SQ 4 units ACHS [facility] Administration Protocol Insulin Detemir 30 units 11/14/18 22:00 11/15/18 06:28 Levemir Vial SQ 30 units BID@0700,2200 [facility] Administration Labetalol HCl 100 mg 11/14/18 22:00 11/15/18 09:35 Normodyne - PO 100 mg BID [facility] Administration Nifedipine 60 mg 11/14/18 22:00 11/15/18 09:36 Procardia Xl - PO 60 mg BID [facility] Administration Ondansetron HCl 4 mg 11/14/18 14:35 Zofran Injection IVPB Q6H PRN NAUSEA AND/OR VOMITING Pantoprazole Sodium 40 mg 11/15/18 10:00 11/15/18 09:34 Protonix Iv IVPUSH 40 mg DAILY [facility] Administration Prednisone 5 mg 11/15/18 10:00 11/15/18 09:40 Deltasone - PO 5 mg DAILY [facility] Administration Sodium Bicarbonate 650 mg/ 975 mg 11/14/18 22:00 11/15/18 09:41 Sodium Bicarbonate 325 mg PO 975 mg BID [facility] Administration Tacrolimus 5 mg/ Tacrolimus 2 7 mg 11/14/18 22:00 11/15/18 09:40 mg PO 7 mg BID [facility] Administration Tamsulosin HCl 0.4 mg 11/15/18 08:30 11/15/18 09:25 Flomax - PO 0.4 mg DAILY@0830 [facility] Administration Impression 1. Kidney transplant 2. HTN 3. pvd 4. left toe gangrene 5. met acidosis 6. DM 7. RISHI 8. sepsis 9. UTI 10. 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 - monitor urine output - discussed with medical team - monitor bp - discussed with family - urine sodium was low, likely in part there is a prerenal component - follow cultures - cont abx per ID - check urine lytes and accounting clerk - renal ultrasound reviewed transplant home meds: prograf 7 mg bid prednisone 5 mg mmf 360 mg tab, 2 tabs bid
[2018-11-15 15:55] LABS: HEMOGLOBIN 8.5 GM/dL (11.7-16.9); MCH 29.1 pg (25.7-33.7); MCHC 31.4 g/dl (32.0-35.9); MEAN CELL VOLUME 92.5 fl (80-96); MEAN PLT VOLUME 9.9 fl (7.5-11.1); PLATELET COUNT 307 K/MM3 (134-434); RBC 2.92 M/mm3 (4.00-5.60); RDW 15.9 % (11.9-15.9); WHITE BLOOD COUNT 20.3 K/mm3 (4.0-10.0)
--- NOTE | 2018-11-15 15:55 | PN ---
Progress Note (short form) - Note Progress Note: no nausea no abdominal pain notes he is SOB Vital Signs Period Temp Pulse Resp BP Sys/Moseley Pulse Ox Last 24 Hr 98.1 F-100.4 F 45-95 17-24 103-136/56-77 86-96 cor-rrr lungs decreased bs at bases +AVF left arm abd soft,nt, +AVF with thrill ext dressing left foot- suture site open and drainag serous fluid, no purulence noted sonogram- no hydronephrosis noted CBC, BMP 11/15/18 15:00 bun/cr 55-4.1 cxray congestion vanco trough 13 Microbiology 11/12/18 12:50 Blood - Peripheral Venous Blood Culture - Preliminary NO GROWTH OBTAINED AFTER 72 HOURS, INCUBATION TO CONTINUE FOR 2 DAYS. 11/12/18 12:55 Blood - Peripheral Venous Blood Culture - Preliminary NO GROWTH OBTAINED AFTER 72 HOURS, INCUBATION TO CONTINUE FOR 2 DAYS. 11/13/18 00:00 Urine - Urine Clean Catch Urine Culture - Final Klebsiella Pneumoniae - Esbl 11/14/18 10:28 Blood - Peripheral Venous Blood Culture - Preliminary NO GROWTH OBTAINED AFTER 24 HOURS, INCUBATION TO CONTINUE FOR 4 DAYS. 11/14/18 10:15 Blood - Peripheral Venous Blood Culture - Preliminary NO GROWTH OBTAINED AFTER 24 HOURS, INCUBATION TO CONTINUE FOR 4 DAYS. 11/13/18 20:39 Toe - Left Hallux Gram Stain - Final 11/13/18 20:39 Toe - Left Hallux Wound Culture - Preliminary Strep Agalactiae Group B 11/13/18 20:39 Tissue-Other Gram Stain - Final 11/13/18 20:39 Tissue-Other Tissue Culture - Preliminary Strep Agalactiae Group B Pending Organism Pending Organism#2 a/p fever-renal transplant patient gangrene of toe-s/p amputation- POD #2-wound may need washout UTI evelyn/ckd-worsening renal transplant 2016 continue meropenem cultures no MRSA- hold further vancomycin dose adjusted for evelyn- worsening renal function repeat blood cultures negative renal f/u ongoing contact isolation history of ecoli esbl UTI/sepsis d/w dr lyon for transfer to the [facility] Problem List - Problems (1) Fever Code(s): R50.9 - FEVER, UNSPECIFIED (2) Gangrene of left foot Code(s): I96 - GANGRENE, NOT ELSEWHERE CLASSIFIED
--- NOTE | 2018-11-15 16:02 | EKG ---
Test Reason : Blood Pressure : / mmHG Vent. Rate : 094 BPM Atrial Rate : 094 BPM P-R Int : 150 ms QRS Dur : 090 ms QT Int : 362 ms P-R-T Axes : 058 076 123 degrees QTc Int : 452 ms SINUS RHYTHM WITH PREMATURE ATRIAL COMPLEXES T WAVE ABNORMALITY, CONSIDER LATERAL ISCHEMIA ABNORMAL ECG WHEN COMPARED WITH ECG OF 14-NOV-2018 10:15, PREMATURE VENTRICULAR COMPLEXES ARE NO LONGER PRESENT PREMATURE ATRIAL COMPLEXES ARE NOW PRESENT Confirmed by RUTHY ANGULO MD ([id number]) on 11/15/2018 4:01:57 PM Referred By: JAKE CASANOVA Confirmed By:RUTHY ANGULO MD
[2018-11-15] MEDS ORDERED: ALBUTEROL SO4 2.5/IPRATROPIUM 0.5 INH SOL 3 ML VIAL.NEB. NEB ONE (16:12)
[2018-11-15 16:29] LABS: ALBUMIN 2.2 g/dl (3.4-5.0); BILIRUBIN,TOTAL 0.6 mg/dL (0.2-1); BLOOD UREA NITROGEN 59.6 mg/dL (7-18); CREATININE 4.1 mg/dL (0.55-1.3); POTASSIUM 4.7 mmol/L (3.5-5.1)
--- NOTE | 2018-11-15 17:13 | PN ---
Physical Exam: SUBJECTIVE: Patient seen and examined at bedside, states he is feeling much better and has been eating soft foods and his nausea has dissipated. Later in the afternoon patient expressed a feeling of chest discomfort and stated he felt his was having difficulty breathing, although his O2 sats were good. An EKG , CXR, CBC, CMP, and trops were ordered and will be followed up prior to transfer. The patient is otherwise stable and ready for transfer to [facility] to be managed by their kidney transplant team. OBJECTIVE: Vital Signs Period Temp Pulse Resp BP Sys/Moseley Pulse Ox Last 24 Hr 98.1 F-100.4 F 45-95 17-24 103-139/56-77 86-96 GENERAL: A&Ox3, no acute distress EYES: PERRLA, EOMI ENT: Dry mucus membranes NECK: Mild JVD noted LUNGS: decreased lung sounds at bases bilaterally HEART: regular rate and rhythm, no murmurs, rubs, or gallops appreciated ABDOMEN: Soft, nontender, BS present EXTREMITIES: +AVF left arm with thrill. 2+ pulses, no edema noted, s/p L great toe amputation, dressing with draining serous fluid visible, no purulence. DP and PT pulses auscultated with doppler on L foot. NEUROLOGICAL: Cranial nerves II-XII intact. Laboratory Results - last 24 hr 11/14/18 11/14/18 11/15/18 17:29 21:34 05:40 WBC RBC Hgb Hct MCV MCH MCHC RDW Plt Count MPV Sodium Potassium Chloride Carbon Dioxide Anion Gap BUN Creatinine Est GFR (CKD-EPI)AfAm Est GFR (CKD-EPI)NonAf POC Glucometer 185 245 Random Glucose Calcium Total Bilirubin AST ALT Alkaline Phosphatase Creatine Kinase Troponin I Total Protein Albumin Random Vancomycin 13.2 L 11/15/18 11/15/18 11/15/18 06:20 07:51 07:51 WBC 17.8 H RBC 2.86 L Hgb 8.4 L Hct 26.1 L MCV 91.2 MCH 29.4 MCHC 32.2 RDW 15.8 Plt Count 294 MPV 9.8 Sodium 135 L Potassium 4.5 Chloride 102 Carbon Dioxide 21 Anion Gap 12 BUN 55.5 H Creatinine 4.1 H Est GFR (CKD-EPI)AfAm 16.67 Est GFR (CKD-EPI)NonAf 14.38 POC Glucometer 265 Random Glucose 279 H Calcium 8.3 L Total Bilirubin AST ALT Alkaline Phosphatase Creatine Kinase Troponin I Total Protein Albumin Random Vancomycin 11/15/18 11/15/18 11/15/18 11:55 15:00 15:00 WBC 20.3 H RBC 2.92 L Hgb 8.5 L Hct 27.0 L MCV 92.5 MCH 29.1 MCHC 31.4 L RDW 15.9 Plt Count 307 MPV 9.9 Sodium 132 L Potassium 4.7 Chloride 101 Carbon Dioxide 22 Anion Gap 8 BUN 59.6 H Creatinine 4.1 H Est GFR (CKD-EPI)AfAm 16.67 Est GFR (CKD-EPI)NonAf 14.38 POC Glucometer 259 Random Glucose 257 H Calcium 8.0 L Total Bilirubin 0.6 AST 15 ALT 24 Alkaline Phosphatase 192 H Creatine Kinase 107 Troponin I 0.03 Total Protein 6.0 L Albumin 2.2 L Random Vancomycin Active Medications Generic Name Dose Route Start Last Admin Trade Name Freq PRN Reason Stop Dose Admin Acetaminophen 650 mg 11/14/18 14:35 11/15/18 01:30 Tylenol - PO 650 mg Q4H PRN Administration FEVER Aspirin 81 mg 11/15/18 10:00 11/15/18 09:33 Asa - PO 81 mg DAILY CHANDU Administration Clopidogrel Bisulfate 75 mg 11/15/18 10:00 11/15/18 09:34 Plavix - PO 75 mg DAILY CHANDU Administration Ezetimibe 10 mg 11/15/18 10:00 11/15/18 09:37 Zetia - PO 10 mg DAILY CHANDU Administration Furosemide 40 mg 11/15/18 10:00 11/15/18 09:37 Lasix - PO 40 mg DAILY CHANDU Administration Hydralazine HCl 100 mg 11/14/18 22:00 11/15/18 14:10 Apresoline - PO 100 mg TID CHANDU Administration Lactated Ringer's 1,000 mls @ 125 mls/hr 11/14/18 14:35 11/14/18 14:35 Lactated Ringers Solution IV Not Given ASDIR CHANDU Meropenem 500 mg/ Dextrose 100 mls @ 200 mls/hr 11/15/18 22:00 IVPB Q12H CHANDU Insulin Aspart 1 vial 11/14/18 16:30 11/15/18 11:58 Novolog Vial Sliding Scale - SQ 4 units ACHS CHANDU Administration Protocol Insulin Detemir 30 units 11/14/18 22:00 11/15/18 06:28 Levemir Vial SQ 30 units BID@0700,2200 CHANDU Administration Labetalol HCl 100 mg 11/14/18 22:00 11/15/18 09:35 Normodyne - PO 100 mg BID CHANDU Administration Nifedipine 60 mg 11/14/18 22:00 11/15/18 09:36 Procardia Xl - PO 60 mg BID CHANDU Administration Ondansetron HCl 4 mg 11/14/18 14:35 Zofran Injection IVPB Q6H PRN NAUSEA AND/OR VOMITING Pantoprazole Sodium 40 mg 11/15/18 10:00 11/15/18 09:34 Protonix Iv IVPUSH 40 mg DAILY CHANDU Administration Prednisone 5 mg 11/15/18 10:00 11/15/18 09:40 Deltasone - PO 5 mg DAILY CHANDU Administration Sodium Bicarbonate 650 mg/ 975 mg 11/14/18 22:00 11/15/18 09:41 Sodium Bicarbonate 325 mg PO 975 mg BID CHANDU Administration Tacrolimus 5 mg/ Tacrolimus 2 7 mg 11/14/18 22:00 11/15/18 09:40 mg PO 7 mg BID CHANDU Administration Tamsulosin HCl 0.4 mg 11/15/18 08:30 11/15/18 09:25 Flomax - PO 0.4 mg DAILY@0830 CHANDU Administration ASSESSMENT/PLAN: 63 year old male with a history of hypertension, diabetes, renal transplant in 2015 ([facility]) presented to the hospital for infection of his L great toe with accompanying fevers, chills, and diarrhea, admitted for gangrenous L great toe and transferred to ICU for monitoring in the setting of sepsis Neurologic -no acute issues Cardiovascular -tachycardic, could be from sepsis in conjunction to pain - patient still tachycardic to the 90s today -EKG was unchanged from prior; sinus tachycardia with T wave inversions in lateral leads -BP within normal limits, continue antihypertensives nifedipine, labetalol, hydralazine; hold lasix in the setting of sepsis -will need to bolus with NS -This afternoon patient was complaining of chest discomfort and trouble breathing -F/U on CXR, EKG, Troponins, CBC, CMP Pulmonary -no acute issues Gastrointestinal -nausea, not currently vomiting -IV hydration, will monitor Renal -s/p renal transplant in 2015, on immunosuppressive medications -continue tacrolimus, prednisone, mmf held by renal -creatinine still trending up, hydrate and recheck BMP, renally dose all antibiotics -will initiate transfer to [facility], Dr. Correa (transplant renal) there is aware Infectious Diseases -urinary tract infection -L great toe gangrene -on meropenem now, abx day 3 -cultures drawn-no MRSA, vancomycin D/C'd -ID following Endocrine -DM - SS/BGMs FEN -liter bolus now -recheck BMP in PM -renal diet Disposition -ICU, will initiate transfer-stable for transfer to [facility] pending results of labs/troponins/ EKG/ CXR Visit type - Emergency Visit Emergency Visit: Yes ED Registration Date: 11/12/18 Care time: The patient presented to the Emergency Department on the above date and was hospitalized for further evaluation of their emergent condition. - New Patient This patient is new to me today: Yes Date on this admission: 11/15/18 - Critical Care Critical Care patient: Yes Total Critical Care Time (in minutes): 40 Critical Care Statement: The care of this patient involved high complexity decision making to prevent further life threatening deterioration of the patient 's condition and/or to evaluate & treat vital organ system(s) failure or risk of failure. ATTENDING PHYSICIAN STATEMENT I saw and evaluated the patient. I reviewed the resident's note and discussed the case with the resident. I agree with the resident's findings and plan as documented. SUBJECTIVE: OBJECTIVE: ASSESSMENT AND PLAN:
[2018-11-15 18:01] VITALS: PULSE 95
[2018-11-15] MEDS: LACTATED RINGERS SOLUTION 1,000 ML IV SCH (19:26)
[2018-11-15 20:04] VITALS: BP 141/65; TEMP 99.6
[2018-11-15] MEDS ORDERED: MEROPENEM 500 MG in DEXTROSE 5%-WATER 100 ML IVPB SCH (22:00)
== END 2018-11-15 19:45 | disposition short-term general hospital (02) | DRG 854 ==
LOC: JER 11:43 → JERBED 13:00 → J8W 15:50 → JICU 11-14 14:42
PROVIDERS: ADMIT Family Medicine; ATTEND Family Medicine
PROC: 0QBP0ZX Excision of Left Metatarsal, Open Approach, Diagnostic (ICD-10-PCS; 2018-11-13)
PROC: 0Y6Q0Z0 Detachment at Left 1st Toe, Complete, Open Approach (ICD-10-PCS; principal; 2018-11-13 16:00)
DX: A41.89 Other specified sepsis (principal); E11.52 Type 2 diabetes mellitus with diabetic peripheral angiopathy with gangrene; N39.0 Urinary tract infection, site not specified; I96 Gangrene, not elsewhere classified; N17.9 Acute kidney failure, unspecified; Z94.0 Kidney transplant status; E87.2 Acidosis; R00.0 Tachycardia, unspecified; I12.9 Hypertensive chronic kidney disease with stage 1 through stage 4 chronic kidney disease, or unspecified chronic kidney disease; E11.22 Type 2 diabetes mellitus with diabetic chronic kidney disease; N18.9 Chronic kidney disease, unspecified; J44.9 Chronic obstructive pulmonary disease, unspecified; R11.0 Nausea; R50.9 Fever, unspecified; K21.9 Gastro-esophageal reflux disease without esophagitis; Z79.4 Long term (current) use of insulin
CPT/HCPCS: 36415; 71045-TC-FY; 73630-TC-LT; 74018-TC-FY; 76776-TC; 80048; 80053; 80197; 81003; 82436; 82550; 82553; 82565; 82803; 82962; 83036; 83605; 83735; 84100; 84133; 84300; 84436; 84443; 84484; 85025; 85027; 85610; 85651; 85730; 86140; 86850; 86900; 86901; 87040; 87070; 87075; 87086; 87186; 87205; 88305-TC; 88311-TC; 93005; 93010; 94760; 99283-25; G0463-25; G0480; J0131; J7030